=== PATIENT | female | born 1970 | race Caucasian/White ===

== ENCOUNTER 2016-10-11 12:19 | Inpatient (IN) | payer OTHER ==
[2016-10-11 12:39] VITALS: BMI 26.4
[2016-10-11] MEDS ORDERED: ONDANSETRON 4 MG/2 ML VIAL IVPUSH ONE ×2 (12:58→16:54)
[2016-10-11] MEDS ORDERED: SODIUM CHLORIDE 1,000 ML IV STA (12:58)
[2016-10-11] MEDS ORDERED: KETOROLAC TROMETHAMINE 30 MG/1 ML VIAL IVPUSH STA (13:08)
[2016-10-11] MEDS ORDERED: ONDANSETRON 4 MG/2 ML VIAL ONE ×2 (13:08→16:50)
[2016-10-11 13:20] LABS: URINE APPEARANCE CLEAR; URINE BILIRUBIN NEGATIVE (NEGATIVE); URINE BLOOD NEGATIVE (NEGATIVE); URINE COLOR STRAW; URINE GLUCOSE (UA) NEGATIVE (NEGATIVE); URINE KETONE NEGATIVE (NEGATIVE); URINE LEUK ESTERASE NEGATIVE (NEGATIVE); URINE NITRITE NEGATIVE (NEGATIVE); URINE PROTEIN NEGATIVE (NEGATIVE); URINE UROBILINOGEN NEGATIVE E.U./dl (0.2-1.0)
--- NOTE | 2016-10-11 13:25 | PDOC ---
History of Present Illness - General Chief Complaint: Pain, Acute Stated Complaint: HEADACHE, KIDNEY PAIN,HX OF CROHNS Time Seen by Provider: 10/11/16 12:45 History Source: Patient Exam Limitations: No Limitations - History of Present Illness Travel History: No Initial Comments: 10/11/16 13:17 46-year-old female with history of Crohn's followed by Dr. Woods and presents with right lower quadrant right flank pain radiating to her right periumbilical region which she describes a cramping pain for the past 2-3 days worsening in severity now having episodes of diarrhea accompanied with nausea and vomiting. Patient denies fever, chills, abdominal distention, change in urine pattern, recent travel or recent illness. Timing/Duration: reports: getting worse Quality: reports: moderate, cramping Abdominal Pain Onset Location: reports: RLQ, flank Pain Radiation: reports: RUQ, periumbilical Activities at Onset: reports: none Aggravating Factors: improves with: None Alleviating Factors: improves with: None Past History - Past Medical History Allergies/Adverse Reactions: Allergies Allergy/AdvReac Type Severity Reaction Status Date / Time metronidazole [From Flagyl] Allergy Verified 10/11/16 12:36 Home Medications: Ambulatory Orders Adalimumab [Humira] 40 mg SQ FR 10/11/16 GI Disorders: Yes (Crohn's) - Psycho/Social/Smoking Cessation Hx Suicidal Ideation: No Smoking History: Former smoker Have you smoked in the past 12 months: No Information on smoking cessation initiated: No Abd/GI Specific PMHX - Complaint Specific PMHX Other History: crohn's Review of Systems - Review of Systems Able to Perform ROS?: Yes Constitutional: No: Symptoms Reported HEENTM: No: Symptoms Reported Respiratory: No: Symptoms reported Cardiac (ROS): No: Symptoms Reported ABD/GI: Yes: Diarrhea, Nausea, Vomiting, Abdominal cramping : No: Symptoms Reported Musculoskeletal: No: Symptoms Reported Integumentary: No: Symptoms Reported Neurological: No: Symptoms reported *Physical Exam - Vital Signs Last Vital Signs Temp Pulse Resp BP Pulse Ox 98 F 80 19 127/85 98 10/11/16 12:36 10/11/16 12:36 10/11/16 12:36 10/11/16 12:36 10/11/16 12:36 - Physical Exam General Appearance: Yes: Nourished, Appropriately Dressed. No: Apparent Distress HEENT: negative: Pale Conjunctivae Respiratory/Chest: positive: Lungs Clear, Normal Breath Sounds. negative: Respiratory Distress, Accessory Muscle Use Cardiovascular: positive: Regular Rhythm, Regular Rate. negative: Murmur Gastrointestinal/Abdominal: positive: Normal Bowel Sounds, Soft, Tenderness ( right lower quadrant right periumbilical right upper quadrant.). negative: Distended, Guarding, Rebound, Hernia, Mass Musculoskeletal: positive: CVA Tenderness (R) (mild) Extremity: positive: Normal Capillary Refill. negative: Pedal Edema Integumentary: positive: Normal Color, Warm, Moist ED Treatment Course - LABORATORY CBC & Chemistry Diagram: 10/13/16 06:00 10/12/16 06:29 Medical Decision Making - Medical Decision Making 10/11/16 13:27 Patient with history of Crohn's presents with right upper quadrant right lower quadrant right flank pain for the past 3 days worsening severity patient history of Crohn's with her last, colonoscopy performed in [address] Woods patient states has been taking U Marro with good effect over the past 6 years. Patient today concerning for urinary tract infection versus cholecystitis versus Crohn's versus appendicitis. Patient ordered for labs urine pain control antiemetics, IV fluids, and CT 10/11/16 17:30 CT shows mild concentric wall thickening involving the colo-ileal anastomosis which may be on the basis of residual or recurrent inflammation. There is no pericolonic or perienteric edema visualized. Surgical anastomosis are seen within the mid abdominal small bowel movement ascending colon. There is no evidence of acute appendicitis or diverticulitis. There is evidence of a 3 cm right ovarian cyst. Call placed to Dr. Woods discuss today's visit Laboratory Tests 10/11/16 10/11/16 10/11/16 13:10 13:20 13:20 WBC 7.0 Hgb 13.5 Hct 41.6 Neutrophils % 43.6 Sodium 141 Potassium 3.7 Chloride 106 Carbon Dioxide 25 Anion Gap 10 BUN 6 L Creatinine 0.6 Random Glucose 91 Lactic Acid Calcium 8.5 Magnesium 1.9 Total Bilirubin 0.5 D AST 14 L D ALT 28 Alkaline Phosphatase 69 Lipase 190 Urine Ketones Negative Urine Nitrite Negative Urine HCG, Qual Negative 10/11/16 13:20 WBC Hgb Hct Neutrophils % Sodium Potassium Chloride Carbon Dioxide Anion Gap BUN Creatinine Random Glucose Lactic Acid 1.664 Calcium Magnesium Total Bilirubin AST ALT Alkaline Phosphatase Lipase Urine Ketones Urine Nitrite Urine HCG, Qual 10/11/16 18:[address] Woods and feels patient has failed outpatient therapy with Humira and is concerned with this acute exacerbation. He is recommending stool cultures keep patient nothing by mouth except ice chips, give Cipro 400 mg every 12, add a CRP, ESR, and give 3 bags of dextrose normal saline at 150 an hour. He is also recommending Solu-Medrol 60 mg every daily. Call also placed to Dr. Bassett for admission. *DC/Admit/Observation/Transfer Diagnosis at time of Disposition: Nausea vomiting and diarrhea Exacerbation of Crohn's disease Qualifiers: Digestive disease complication type: unspecified complication Qualified Code(s) : K50.919 - Crohn's disease, unspecified, with unspecified complications - Discharge Dispostion Admit: Yes
[2016-10-11] MEDS ORDERED: KETOROLAC TROMETHAMINE 30 MG/1 ML VIAL ONE (13:33)
[2016-10-11 13:35] LABS: BASOPHIL 0.6 % (0-2.0); EOSINOPHIL 1.4 % (0-4.5); MCH 26.4 pg (25.7-33.7); MCHC 32.3 g/dl (32.0-36.0); MEAN CELL VOLUME 81.8 fl (80-96); NEUTROPHILS 43.6 % (42.8-82.8); PLATELET COUNT 208 K/MM3 (134-434); RDW 14.5 % (11.6-15.6)
[2016-10-11 14:02] LABS: ALBUMIN 3.7 g/dl (3.4-5.0); ANION GAP 10 (8-16); BILIRUBIN,TOTAL 0.5 mg/dL (0.2-1.0); CALCIUM 8.5 mg/dL (8.5-10.1); CO2 25 mmol/L (21-32); CREATININE 0.6 mg/dL (0.55-1.02); GLUCOSE,RANDOM 91 mg/dL (74-106); MAGNESIUM 1.9 mg/dL (1.8-2.4); SGOT/AST 14 U/L (15-37); SGPT/ALT 28 U/L (12-78); TOT PROT 7.8 g/dl (6.4-8.2)
[2016-10-11 14:03] LABS: ALK PHOS 69 U/L (45-117)
[2016-10-11] MEDS ORDERED: morphine CARPU-JECT 2 MG/1 ML DISP.SYRIN IVPUSH ONE ×2 (14:05→17:44)
[2016-10-11] MEDS ORDERED: morphine CARPU-JECT 4 MG/1 ML DISP.SYRIN ONE ×2 (14:07→17:45)
[2016-10-11] MEDS ORDERED: CEFTRIAXONE 1 GM in DEXTROSE 5%-WATER - 50 ML IVPB ONE (18:18)
[2016-10-11] MEDS ORDERED: methylPREDNISolone NA SUCC 125 MG/2 ML VIAL IVPB ONE (18:19)
[2016-10-11] MEDS ORDERED: CIPROFLOXACIN 400 MG/D5W 200 ML IVPB ONE (18:21)
[2016-10-11] MEDS ORDERED: DEXTROSE 5%-NORMAL SALINE 1,000 ML IV SCH ×2 (18:30)
[2016-10-11] MEDS ORDERED: methylPREDNISolone NA SUCC 40 MG/1 ML VIAL ONE (18:33)
[2016-10-11] MEDS: DEXTROSE 5%-NORMAL SALINE 1,000 ML IV SCH (18:46)
[2016-10-11] MEDS ORDERED: PANTOPRAZOLE SODIUM 40 MG in SODIUM CHLORIDE 100 ML IVPB SCH (22:00)
[2016-10-11] MEDS: PANTOPRAZOLE SODIUM 40 MG/100 ML PRE-DOCKED IVPB SCH (23:30)
[2016-10-12] MEDS ORDERED: HYDROmorphone HCL CARPU-JECT 1 MG/1 ML DISP.SYRIN ONE (01:01)
[2016-10-12] MEDS: HYDROmorphone HCL CARPU-JECT 2 MG/1 ML DISP.SYRIN IVPB PRN ×2 (01:07→20:44)
[2016-10-12 07:06] LABS: BASOPHIL 0.4 % (0-2.0); MCHC 32.9 g/dl (32.0-36.0); MEAN CELL VOLUME 82.2 fl (80-96); NEUTROPHILS 59.2 % (42.8-82.8); PLATELET COUNT 189 K/MM3 (134-434); RDW 14.6 % (11.6-15.6); WHITE BLOOD COUNT 6.3 K/mm3 (4.0-10.0)
[2016-10-12 07:33] LABS: ALBUMIN 3.1 g/dl (3.4-5.0); ALK PHOS 59 U/L (45-117); ANION GAP 8 (8-16); BILIRUBIN,TOTAL 0.3 mg/dL (0.2-1.0); CALCIUM 7.9 mg/dL (8.5-10.1); CO2 23 mmol/L (21-32); CREATININE 0.5 mg/dL (0.55-1.02); GLUCOSE,RANDOM 136 mg/dL (74-106); SGOT/AST 7 U/L (15-37); SGPT/ALT 22 U/L (12-78); TOT PROT 6.5 g/dl (6.4-8.2)
[2016-10-12] MEDS ORDERED: methylPREDNISolone NA SUCC 125 MG/2 ML VIAL ONE (10:02)
[2016-10-12] MEDS ORDERED: PANTOPRAZOLE SODIUM 100 ML IVPB ONE (10:02)
[2016-10-12] MEDS: PANTOPRAZOLE SODIUM 40 MG/100 ML PRE-DOCKED IVPB SCH (10:05)
[2016-10-12] MEDS: methylPREDNISolone NA SUCC 125 MG/2 ML VIAL IVPB SCH (10:05)
[2016-10-12] MEDS: LEVOFLOXACIN 500 MG IVPB 100 ML IVPB SCH (13:24)
--- NOTE | 2016-10-12 18:28 | CON.GI ---
Consult Consult Specialty:: gastroenterology Reason for Consultation:: Crohns disease - History of Present Illness History of Present Illness: 46 y/o female with PMH of Crohns disease,s/p small bowel surgery, on Humara weekly was doing well until yesterdeay when developed diarrhea,abdominal bloating and abdominal pian,. Diarrhea is non-bloody,4-5 times small in amount, no recent travel history, no recent anitiobtic use, no recent URI or exposed to anybody with a flu. CT ileocolonic anastomosis is swollen - History Source History Provided By: Patient - Past Medical History HOTHOUSE WORKER: Yes: Migraine Cardio/Vascular: No: Aneurysm Pulmonary: No: Bronchitis Gastrointestinal: No: Cancer Hepatobiliary: No: Cholecystitis - Smoking History Smoking history: Former smoker Have you smoked in the past 12 months: No Home Medications - Allergies Allergies/Adverse Reactions: Allergies Allergy/AdvReac Type Severity Reaction Status Date / Time metronidazole [From Flagyl] Allergy Verified 10/11/16 12:36 - Home Medications Home Medications: Ambulatory Orders Adalimumab [Humira] 40 mg SQ FR 10/11/16 Family Disease History - Family Disease History Family History: Unable to Obtain Physical Exam-GI Vital Signs: Vital Signs Temperature 98.5 F 10/12/16 15:17 Pulse Rate 61 10/12/16 15:17 Respiratory Rate 20 10/12/16 15:17 Blood Pressure 130/75 10/12/16 15:17 O2 Sat by Pulse Oximetry (%) 98 10/12/16 13:19 Constitutional: Yes: Well Nourished Eyes: Yes: Conjunctiva Clear HENT: Yes: Atraumatic Neck: Yes: Supple Cardiovascular: Yes: Regular Rate and Rhythm Respiratory: Yes: CTA Bilaterally ...Palpate: Yes: Soft, Tenderness (--rlq). No: Firm/Rigid, Guarding, Hepatomegaly, Mass, Pulsatile Mass, Splenomegaly Labs: CBC, BMP 10/12/16 06:29 10/12/16 06:29 Problem List - Problems (1) Exacerbation of Crohn's disease Assessment/Plan: R> IV hydration IV solumedrol IV Levaquin clear liquids Code(s): K50.90 - CROHN'S DISEASE, UNSPECIFIED, WITHOUT COMPLICATIONS Qualifiers: Digestive disease complication type: unspecified complication Qualified Code(s): K50.919 - Crohn's disease, unspecified, with unspecified complications
[2016-10-12] MEDS: DEXTROSE 5%-NORMAL SALINE 1,000 ML IV SCH (20:44)
--- NOTE | 2016-10-12 23:17 | HP ---
Admitting History and Physical - Admission Chief Complaint: headaches associated with nausea and vomiting History of Present Illness: 46 yo female with PMH of Chron's disease controlled for approximately 4 years with weekly injectable Humira presented to ER for 4 days complaints of right hemicrania. Associated symptoms were nausea, vomiting and diarrhea. The patient has history of migraine headaches and presented to ER for pain management. At the time of the ER evaluation she was also complaining of right lower back pain and right lower quadrant pain. A ct scan of the abdomen was performed and it showed signs of active colitis. She denies any blood in stool, the color of the stools was brown with mucosities. Her vomitus was billious and occurred 4 times. 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 Cardiovascular: No: Aneurysm Pulmonary: No: Bronchitis Gastrointestinal: No: Cancer Hepatobiliary: No: Cholecystitis - Smoking History Smoking history: Former smoker Have you smoked in the past 12 months: No Home Medications - Allergies Allergies/Adverse Reactions: Allergies Allergy/AdvReac Type Severity Reaction Status Date / Time metronidazole [From Flagyl] Allergy Verified 10/11/16 12:36 - Home Medications Home Medications: Ambulatory Orders Adalimumab [Humira] 40 mg SQ FR 10/11/16 Review of Systems - Review of Systems Constitutional: reports: Loss of Appetite, Weakness Eyes: reports: No Symptoms HENT: reports: Other (right hemicrania) Neck: reports: No Symptoms Cardiovascular: reports: No Symptoms Respiratory: reports: No Symptoms Gastrointestinal: reports: Diarrhea, Nausea, Vomiting Breasts: reports: No Symptoms Reported Musculoskeletal: reports: No Symptoms (lower back pain involving the sacroileal area), Back Pain Integumentary: reports: No Symptoms Hematology/Lymphatic: reports: No Symptoms Psychiatric: reports: No Symptoms Physical Examination Vital Signs: Vital Signs Temperature 98.2 F 10/12/16 18:44 Pulse Rate 67 10/12/16 18:44 Respiratory Rate 20 10/12/16 18:44 Blood Pressure 121/67 10/12/16 18:44 O2 Sat by Pulse Oximetry (%) 98 10/12/16 13:19 Constitutional: Yes: No Distress, Calm Eyes: Yes: Conjunctiva Clear, EOM Intact HENT: Yes: Atraumatic, Normocephalic Neck: Yes: Supple, Trachea Midline Cardiovascular: Yes: Regular Rate and Rhythm, S1, S2 Respiratory: Yes: Regular Gastrointestinal: Yes: Normal Bowel Sounds, Soft, Abdomen, Obese, Tenderness ( in th eright upper and lower quadrant). No: Hepatomegaly, Melena, Rectal Bleeding, Splenomegaly ...Rectal Exam: Yes: Deferred Renal/: Yes: WNL Breast(s): Yes: WNL Extremities: No: Calf Tenderness Edema: No Peripheral Pulses WNL: Yes Integumentary: Yes: WNL Neurological: Yes: Alert, Oriented Psychiatric: Yes: Alert, Oriented Labs: CBC, BMP 10/12/16 06:29 10/12/16 06:29 Imaging - Results Cat Scan: Report Reviewed Problem List - Problems (1) Migraine Assessment/Plan: headache is better, and probably responded to the Solumedrol and Morphin/ dilaudid injections Code(s): G43.909 - MIGRAINE, UNSP, NOT INTRACTABLE, WITHOUT STATUS MIGRAINOSUS Qualifiers: Migraine type: other Status migrainosus presence: without status migrainosus Intractability: not intractable Qualified Code(s): G43.809 - Other migraine, not intractable, without status migrainosus (2) Exacerbation of Crohn's disease Assessment/Plan: inflammation markers are pending, strted Solumedron and iv antibiotic as per Dr Mima Patterson Gastroenterology follow up with dr. Woods maintain good hydration status with D5 1/2 NS vitamins levels NPO Code(s): K50.90 - CROHN'S DISEASE, UNSPECIFIED, WITHOUT COMPLICATIONS Qualifiers: Digestive disease complication type: unspecified complication Qualified Code(s): K50.919 - Crohn's disease, unspecified, with unspecified complications
[2016-10-13] MEDS: DEXTROSE 5%-NORMAL SALINE 1,000 ML IV SCH ×2 (06:36→19:05)
[2016-10-13 07:29] LABS: BASOPHIL 0.6 % (0-2.0); EOSINOPHIL 0.3 % (0-4.5); MCH 26.7 pg (25.7-33.7); MCHC 32.6 g/dl (32.0-36.0); MEAN CELL VOLUME 81.9 fl (80-96); MEAN PLT VOLUME 9.1 fl (7.5-11.1); NEUTROPHILS 41.9 % (42.8-82.8); PLATELET COUNT 178 K/MM3 (134-434); RDW 14.3 % (11.6-15.6); WHITE BLOOD COUNT 9.2 K/mm3 (4.0-10.0)
[2016-10-13 08:01] LABS: ALBUMIN 3.3 g/dl (3.4-5.0); ANION GAP 6 (8-16); BILIRUBIN,TOTAL 0.4 mg/dL (0.2-1.0); CALCIUM 8.2 mg/dL (8.5-10.1); CO2 27 mmol/L (21-32); CREATININE 0.7 mg/dL (0.55-1.02); GLUCOSE,RANDOM 97 mg/dL (74-106); SGOT/AST 21 U/L (15-37); SGPT/ALT 31 U/L (12-78)
[2016-10-13 08:02] LABS: ALK PHOS 57 U/L (45-117); TOT PROT 6.7 g/dl (6.4-8.2)
[2016-10-13] MEDS: methylPREDNISolone NA SUCC 125 MG/2 ML VIAL IVPB SCH (11:43)
[2016-10-13] MEDS: PANTOPRAZOLE SODIUM 40 MG/100 ML PRE-DOCKED IVPB SCH (11:43)
[2016-10-13] MEDS: LEVOFLOXACIN 500 MG IVPB 100 ML IVPB SCH (11:43)
[2016-10-13] MEDS: HYDROmorphone HCL CARPU-JECT 2 MG/1 ML DISP.SYRIN IVPB PRN ×2 (12:42→21:52)
--- NOTE | 2016-10-13 22:31 | PN ---
Progress Note, Physician Chief Complaint: 46 yo female admitted with headaches, nausea vomiting and abdominal pain, has history of Chron's History of Present Illness: Patient admitted with exacerbation of Chron's disease . She was found to have on CT scan inflammation of the ileo colic junction. She was started on IV Solumedrol and was given liquid diet. Today the patient was able to tolerate breakfast and lunch but vomited. She refused dinner due to nausea. Her abdominal pain is less - Current Medication List Current Medications: Active Medications Hydromorphone HCl (Dilaudid Injection -) 2 mg IVPB Q4H PRN PRN Reason: PAIN Last Admin: 10/13/16 21:52 Dose: 2 mg Levofloxacin (Levaquin 500 Mg Premixed Ivpb -) 100 mls @ 100 mls/hr IVPB DAILY MT Last Admin: 10/13/16 11:43 Dose: 100 mls/hr Methylprednisolone Sodium Succinate (Solu-Medrol -) 60 mg IVPB DAILY MT Pantoprazole Sodium (Protonix 40mg Ivpb (Pre-Docked)) 40 mg IVPB DAILY MT Last Admin: 10/13/16 11:43 Dose: 40 mg - Objective Vital Signs: Vital Signs Temperature 97.8 F 10/13/16 18:21 Pulse Rate 70 10/13/16 18:21 Respiratory Rate 20 10/13/16 18:21 Blood Pressure 137/70 10/13/16 18:21 O2 Sat by Pulse Oximetry (%) 98 10/13/16 09:00 Constitutional: Yes: No Distress, Calm Eyes: Yes: Conjunctiva Clear, EOM Intact HENT: Yes: Atraumatic, Normocephalic Neck: Yes: Supple, Trachea Midline Cardiovascular: Yes: Regular Rate and Rhythm, S1, S2 Respiratory: Yes: Regular, CTA Bilaterally Gastrointestinal: Yes: Normal Bowel Sounds, Soft, Abdomen, Obese, Tenderness ( right lower and right upper quadrant) Musculoskeletal: Yes: WNL Edema: No Peripheral Pulses WNL: Yes Neurological: Yes: Alert, Oriented Psychiatric: Yes: Alert, Oriented Labs: CBC, BMP 10/13/16 06:00 10/13/16 06:00 Problem List - Problems (1) Exacerbation of Crohn's disease Assessment/Plan: inflammation markers are not elevated, started Solumedrol and iv Levaquin there is no fever and no leukocytosis Gastroenterology follow up maintain good hydration with po fluids vitamins B 12, folate levels continue liquid diet Code(s): K50.90 - CROHN'S DISEASE, UNSPECIFIED, WITHOUT COMPLICATIONS Qualifiers: Digestive disease complication type: unspecified complication Qualified Code(s): K50.919 - Crohn's disease, unspecified, with unspecified complications (2) Migraine Assessment/Plan: headache is better Code(s): G43.909 - MIGRAINE, UNSP, NOT INTRACTABLE, WITHOUT STATUS MIGRAINOSUS Qualifiers: Migraine type: other Status migrainosus presence: without status migrainosus Intractability: not intractable Qualified Code(s): G43.809 - Other migraine, not intractable, without status migrainosus
[2016-10-14 07:45] LABS: BASOPHIL 0.6 % (0-2.0); EOSINOPHIL 0.1 % (0-4.5); MCH 26.6 pg (25.7-33.7); MCHC 32.5 g/dl (32.0-36.0); MEAN PLT VOLUME 9.6 fl (7.5-11.1); NEUTROPHILS 41.1 % (42.8-82.8); PLATELET COUNT 193 K/MM3 (134-434); RDW 14.3 % (11.6-15.6)
[2016-10-14 08:16] LABS: ALBUMIN 3.3 g/dl (3.4-5.0); ANION GAP 10 (8-16); BILIRUBIN,TOTAL 0.5 mg/dL (0.2-1.0); CALCIUM 8.4 mg/dL (8.5-10.1); CO2 28 mmol/L (21-32); CREATININE 0.7 mg/dL (0.55-1.02); GLUCOSE,RANDOM 84 mg/dL (74-106); SGOT/AST 65 U/L (15-37); SGPT/ALT 104 U/L (12-78); TOT PROT 6.9 g/dl (6.4-8.2)
--- NOTE | 2016-10-14 08:28 | PN ---
GI Progress Note Subjective: abdominal pain and diarrhea is resolved, tolerated clear liquids - Objective Vital Signs: Vital Signs Temperature 98.3 F 10/14/16 07:30 Pulse Rate 55 L 10/14/16 07:30 Respiratory Rate 16 10/14/16 07:30 Blood Pressure 140/74 10/14/16 07:30 O2 Sat by Pulse Oximetry (%) 97 10/13/16 22:00 Constitutional: Well Nourished Eyes: Yes: Conjunctiva Clear HENT: Yes: Atraumatic Neck: Yes: Supple Cardiovascular: Yes: Regular Rate and Rhythm Respiratory: Yes: CTA Bilaterally ...Palpate: Yes: Soft. No: Firm/Rigid, Guarding, Hepatomegaly, Mass, Pulsatile Mass, Splenomegaly, Tenderness Labs: CBC, BMP 10/14/16 06:25 Problem List - Problems (1) Exacerbation of Crohn's disease Assessment/Plan: r> made aware to follow-up will need to check levles of Humara and presence of antibodies as an outpatient (on Humara weekly) will need second opinion advance diet Prednisone 60mg daily upon discharge Code(s): K50.90 - CROHN'S DISEASE, UNSPECIFIED, WITHOUT COMPLICATIONS Qualifiers: Digestive disease complication type: unspecified complication Qualified Code(s): K50.919 - Crohn's disease, unspecified, with unspecified complications
[2016-10-14 08:52] LABS: ALK PHOS 64 U/L (45-117)
[2016-10-14] MEDS: PANTOPRAZOLE SODIUM 40 MG/100 ML PRE-DOCKED IVPB SCH (10:45)
[2016-10-14] MEDS: methylPREDNISolone NA SUCC 125 MG/2 ML VIAL IVPB SCH (10:45)
[2016-10-14] MEDS: LEVOFLOXACIN 500 MG IVPB 100 ML IVPB SCH (11:59)
[2016-10-14] MEDS: HYDROmorphone HCL CARPU-JECT 2 MG/1 ML DISP.SYRIN IVPB PRN ×2 (15:10→19:56)
--- NOTE | 2016-10-14 20:44 | PN ---
Progress Note, Physician Chief Complaint: patient seen, symptoms of bloating and diarrhea persist History of Present Illness: Patient admitted with exacerbation of Chron's disease . She was found to have on CT scan inflammation of the ileo colic junction. She was started on IV Solumedrol and was given liquid diet. When eating liquid diet the symptoms are less but they become worse if the patient has a different food consistency. - Current Medication List Current Medications: Active Medications Acetaminophen/Butalbital/Caffeine (Fioricet -) 1 tablet PO Q6H PRN PRN Reason: FEVER OR PAIN Hydromorphone HCl (Dilaudid Injection -) 2 mg IVPB Q4H PRN PRN Reason: PAIN Last Admin: 10/14/16 19:56 Dose: 2 mg Levofloxacin (Levaquin 500 Mg Premixed Ivpb -) 100 mls @ 100 mls/hr IVPB DAILY MT Last Admin: 10/14/16 11:59 Dose: 100 mls/hr Methylprednisolone Sodium Succinate (Solu-Medrol -) 60 mg IVPB DAILY [facility] Last Admin: 10/14/16 10:45 Dose: 60 mg Pantoprazole Sodium (Protonix -) 40 mg PO DAILY MT Propranolol HCl (Inderal -) 40 mg PO HS ONE Stop: 10/14/16 20:41 Zolpidem Tartrate (Ambien -) 10 mg PO HS PRN PRN Reason: INSOMNIA - Objective Vital Signs: Vital Signs Temperature 97.6 F 10/14/16 18:00 Pulse Rate 62 10/14/16 18:00 Respiratory Rate 16 10/14/16 18:00 Blood Pressure 115/75 10/14/16 18:00 O2 Sat by Pulse Oximetry (%) 98 10/14/16 09:00 Constitutional: Yes: No Distress, Calm Eyes: Yes: Conjunctiva Clear, EOM Intact HENT: Yes: Atraumatic, Normocephalic Neck: Yes: Supple, Trachea Midline Cardiovascular: Yes: Regular Rate and Rhythm, S1, S2 Respiratory: Yes: Regular, CTA Bilaterally Gastrointestinal: Yes: Normal Bowel Sounds, Soft Extremities: No: Calf Tenderness Edema: No Peripheral Pulses WNL: Yes Neurological: Yes: Alert, Oriented Psychiatric: Yes: Alert, Oriented Labs: CBC, BMP 10/14/16 06:25 10/14/16 06:25 Problem List - Problems (1) Exacerbation of Crohn's disease Assessment/Plan: liquid diet inflammation markers are not elevated, started Solumedrol and iv Levaquin there is no fever and no leukocytosis Gastroenterology follow up maintain good hydration with po fluids vitamins B 12, folate levels continue liquid diet Code(s): K50.90 - CROHN'S DISEASE, UNSPECIFIED, WITHOUT COMPLICATIONS Qualifiers: Digestive disease complication type: unspecified complication Qualified Code(s): K50.919 - Crohn's disease, unspecified, with unspecified complications (2) Migraine Assessment/Plan: headache is better but persisting Code(s): G43.909 - MIGRAINE, UNSP, NOT INTRACTABLE, WITHOUT STATUS MIGRAINOSUS Qualifiers: Migraine type: other Status migrainosus presence: without status migrainosus Intractability: not intractable Qualified Code(s): G43.809 - Other migraine, not intractable, without status migrainosus (3) Insomnia Assessment/Plan: Ambien at night 10 mg Code(s): G47.00 - INSOMNIA, UNSPECIFIED
[2016-10-14] MEDS: PROPRANOLOL HCL 40 MG TABLET PO SCH (22:06)
[2016-10-15] MEDS: ACETAMINOPHEN/CAFFEINE/BUTALBITAL 1 TAB PO PRN ×2 (01:39→19:42)
[2016-10-15 06:06] LABS: SERUM IRON 87 ug/dL (27-159); TOTAL IRON BINDING CAPACITY 295 ug/dL (250-450); UIBC 208 ug/dL (131-425)
[2016-10-15] MEDS: HYDROmorphone HCL CARPU-JECT 2 MG/1 ML DISP.SYRIN IVPB PRN (10:53)
[2016-10-15] MEDS: methylPREDNISolone NA SUCC 125 MG/2 ML VIAL IVPB SCH (10:54)
[2016-10-15] MEDS: PANTOPRAZOLE 40 MG TABLET (FP) PO SCH (10:54)
[2016-10-15] MEDS: LEVOFLOXACIN 500 MG IVPB 100 ML IVPB SCH (10:54)
--- NOTE | 2016-10-15 11:36 | PN ---
GI Progress Note Subjective: did not tolerate diet, abdominal pain, nausea and vomiting yesterday - Objective Vital Signs: Vital Signs Temperature 98 F 10/15/16 05:31 Pulse Rate 63 10/15/16 05:31 Respiratory Rate 16 10/15/16 05:31 Blood Pressure 128/75 10/15/16 05:31 O2 Sat by Pulse Oximetry (%) 98 10/14/16 21:00 Constitutional: Well Nourished Eyes: Yes: Conjunctiva Clear HENT: Yes: Atraumatic Neck: Yes: Supple Cardiovascular: Yes: Regular Rate and Rhythm Respiratory: Yes: Regular ...Palpate: Yes: Firm/Rigid, Guarding, Hepatomegaly, Mass, Soft, Splenomegaly, Tenderness Labs: CBC, BMP 10/14/16 06:25 10/14/16 06:25 Problem List - Problems (1) Exacerbation of Crohn's disease Assessment/Plan: R> FUA surgical consultation Code(s): K50.90 - CROHN'S DISEASE, UNSPECIFIED, WITHOUT COMPLICATIONS Qualifiers: Digestive disease complication type: unspecified complication Qualified Code(s): K50.919 - Crohn's disease, unspecified, with unspecified complications
--- NOTE | 2016-10-15 16:48 | PN ---
Progress Note, Physician Chief Complaint: Patient seen, complains of abdominal distention after eating and of abdominal pain. The abdominal pain resolves with fasting. Phu's diarrhea continues. She missed her weekly Humira injection. According to the patient her headaches responded to Fioricet. History of Present Illness: Patient admitted with exacerbation of Chron's disease . She was found to have on CT scan inflammation of the ileo colic junction. She was started on IV Solumedrol and was given liquid diet. Today the patient was able to tolerate breakfast and lunch but vomited. She refused dinner due to nausea. - Current Medication List Current Medications: Active Medications Acetaminophen/Butalbital/Caffeine (Fioricet -) 1 tablet PO Q6H PRN PRN Reason: FEVER OR PAIN Last Admin: 10/15/16 01:39 Dose: 1 tablet Hydromorphone HCl (Dilaudid Injection -) 2 mg IVPB Q4H PRN PRN Reason: PAIN Last Admin: 10/15/16 10:53 Dose: 2 mg Levofloxacin (Levaquin 500 Mg Premixed Ivpb -) 100 mls @ 100 mls/hr IVPB DAILY [facility] Last Admin: 10/15/16 10:54 Dose: 100 mls/hr Amino Acids (Clinimix -) 1,000 mls @ 84 mls/hr IV Q12H MT Methylprednisolone Sodium Succinate (Solu-Medrol -) 60 mg IVPB DAILY [facility] Last Admin: 10/15/16 10:54 Dose: 60 mg Pantoprazole Sodium (Protonix -) 40 mg PO DAILY [facility] Last Admin: 10/15/16 10:54 Dose: 40 mg Propranolol HCl (Inderal -) 40 mg PO HS [facility] [place] Last Admin: 10/14/16 22:06 Dose: 40 mg Zolpidem Tartrate (Ambien -) 10 mg PO HS PRN PRN Reason: INSOMNIA - Objective Vital Signs: Vital Signs Temperature 98 F 10/15/16 13:54 Pulse Rate 57 L 10/15/16 13:54 Respiratory Rate 20 10/15/16 13:54 Blood Pressure 143/92 10/15/16 13:54 O2 Sat by Pulse Oximetry (%) 98 10/15/16 09:00 Constitutional: Yes: No Distress, Calm Eyes: Yes: Conjunctiva Clear, EOM Intact HENT: Yes: Atraumatic, Normocephalic Neck: Yes: Supple, Thyromegaly Cardiovascular: Yes: Regular Rate and Rhythm, S1, S2 Respiratory: Yes: Regular, CTA Bilaterally Gastrointestinal: Yes: Normal Bowel Sounds, Soft, Vomiting. No: Tenderness, Rebound Labs: CBC, BMP 10/14/16 06:25 10/14/16 06:25 Problem List - Problems (1) Exacerbation of Crohn's disease Assessment/Plan: NPO Clinimix surgical consult pending with signs of peritoneal irritation inflammation markers are not elevated, started Solumedrol and iv Levaquin there is no fever and no leukocytosis Gastroenterology follow up maintain good hydration with po fluids vitamins B 12, folate levels continue liquid diet Code(s): K50.90 - CROHN'S DISEASE, UNSPECIFIED, WITHOUT COMPLICATIONS Qualifiers: Digestive disease complication type: unspecified complication Qualified Code(s): K50.919 - Crohn's disease, unspecified, with unspecified complications (2) Migraine Assessment/Plan: headache is better Code(s): G43.909 - MIGRAINE, UNSP, NOT INTRACTABLE, WITHOUT STATUS MIGRAINOSUS Qualifiers: Migraine type: other Status migrainosus presence: without status migrainosus Intractability: not intractable Qualified Code(s): G43.809 - Other migraine, not intractable, without status migrainosus
[2016-10-15] MEDS: AMINO ACIDS 4.25%/D5W 1,000 ML IV SCH (17:47)
[2016-10-15] MEDS: ZOLPIDEM TARTRATE 5 MG TABLET PO PRN (22:04)
[2016-10-15] MEDS: PROPRANOLOL HCL 40 MG TABLET PO SCH (22:05)
--- NOTE | 2016-10-15 22:15 | CONSULT ---
Consult Consult Specialty:: surgery Referred by:: Dr. Woods Reason for Consultation:: 46 y/o female with PMH of Crohns disease,s/p small bowel surgery, on Humara weekly was doing well until yesterdeay when developed diarrhea,abdominal bloating and abdominal pian,. Diarrhea is non-bloody,4-5 times small in amount, no recent travel history, no recent anitiobtic use, no recent URI or exposed to anybody with a flu. CT ileocolonic anastomosis is swollen. Since admission paient initially improved but develop nausea and vomiting today. - History of Present Illness Chief Complaint: Abdominal pain - History Source History Provided By: Patient Limitations to Obtaining History: No Limitations - Past Medical History STEAM FITTER: Yes: Migraine Cardio/Vascular: No: Aneurysm Pulmonary: No: Bronchitis Gastrointestinal: No: Cancer Hepatobiliary: No: Cholecystitis - Smoking History Smoking history: Former smoker Have you smoked in the past 12 months: No Home Medications - Allergies Allergies/Adverse Reactions: Allergies Allergy/AdvReac Type Severity Reaction Status Date / Time metronidazole [From Flagyl] Allergy Verified 10/11/16 12:36 - Home Medications Home Medications: Ambulatory Orders Adalimumab [Humira] 40 mg SQ FR 10/11/16 Physical Exam Vital Signs: Vital Signs Temperature 98.5 F 10/15/16 18:00 Pulse Rate 76 10/15/16 18:00 Respiratory Rate 20 10/15/16 18:00 Blood Pressure 126/77 10/15/16 18:00 O2 Sat by Pulse Oximetry (%) 98 10/15/16 09:00 Labs: CBC, BMP 10/14/16 06:25 10/14/16 06:25 Imaging - Results X-ray: Image Reviewed Cat Scan: Report Reviewed, Image Reviewed Problem List - Problems (1) Exacerbation of Crohn's disease Code(s): K50.90 - CROHN'S DISEASE, UNSPECIFIED, WITHOUT COMPLICATIONS Qualifiers: Digestive disease complication type: unspecified complication Qualified Code(s): K50.919 - Crohn's disease, unspecified, with unspecified complications Assessment/Plan Exaccerbation of crohn's. Agree with current management no need for surgical intervention but will follow closely with you in case of clinical deterioration
[2016-10-16] MEDS: AMINO ACIDS 4.25%/D5W 1,000 ML IV SCH ×2 (04:24→17:19)
[2016-10-16 07:16] LABS: MCH 26.9 pg (25.7-33.7); MCHC 33.3 g/dl (32.0-36.0); MEAN PLT VOLUME 9.1 fl (7.5-11.1); PLATELET COUNT 195 K/MM3 (134-434); WHITE BLOOD COUNT 12.3 K/mm3 (4.0-10.0)
[2016-10-16 07:40] LABS: CHOLESTEROL 166 mg/dL (50-200); LDL CHOLESTEROL (ONLY SJRH) 93 mg/dL (5-100)
[2016-10-16 07:44] LABS: ALBUMIN 3.2 g/dl (3.4-5.0); ANION GAP 8 (8-16); C-REACTIVE PROTEIN < 0.3 MG/DL (0.00-0.3); CALCIUM 8.3 mg/dL (8.5-10.1); CO2 29 mmol/L (21-32); CREATININE 0.6 mg/dL (0.55-1.02); GLUCOSE,RANDOM 94 mg/dL (74-106); SGOT/AST 21 U/L (15-37); SGPT/ALT 106 U/L (12-78)
[2016-10-16 07:46] LABS: ALK PHOS 60 U/L (45-117); BILIRUBIN,TOTAL 0.5 mg/dL (0.2-1.0); TOT PROT 6.6 g/dl (6.4-8.2)
[2016-10-16] MEDS: methylPREDNISolone NA SUCC 125 MG/2 ML VIAL IVPB SCH (10:13)
[2016-10-16] MEDS: PANTOPRAZOLE 40 MG TABLET (FP) PO SCH (10:16)
[2016-10-16] MEDS: LEVOFLOXACIN 500 MG IVPB 100 ML IVPB SCH (10:16)
--- NOTE | 2016-10-16 11:24 | PN ---
Progress Note (short form) - Note Progress Note: Surgery-Dr. Benavidez Patient seen and examined. States abdominal pain has improved as she has remained NPO. Had diarrhea, bloating, nausea and vomiting yesterday after eating cream of wheat, states these things have resolved as she has been NPO. Denies fever, chills. Last Vital Signs Temp Pulse Resp BP Pulse Ox 97.9 F 56 L 18 116/73 96 10/16/16 06:01 10/16/16 06:01 10/16/16 06:01 10/16/16 06:01 10/15/16 21:00 CBC, BMP 10/16/16 06:00 10/16/16 06:00 Exam: Gen: NAD, pleasant and cooperative Abd: Soft, nondistended, mild tenderness to palp right abd Problem List - Problems (1) Exacerbation of Crohn's disease Assessment/Plan: Continue current care per medicine Replete low potassium Surgery to continue to follow Code(s): K50.90 - CROHN'S DISEASE, UNSPECIFIED, WITHOUT COMPLICATIONS Qualifiers: Digestive disease complication type: unspecified complication Qualified Code(s): K50.919 - Crohn's disease, unspecified, with unspecified complications
[2016-10-16 12:00] LABS: PLATELET ESTIMATE ADEQUATE (NORMAL)
[2016-10-16] MEDS ORDERED: HUMIRA 40 MG SQ ONE (16:00)
--- NOTE | 2016-10-16 17:44 | PN ---
Progress Note, Physician Chief Complaint: Griffin patient was NPOo during the past 12 hours and had no complaints of pain or diarrhea. She was placed again of regular diet . She slept well and her migraine headache improved. - Current Medication List Current Medications: Active Medications Acetaminophen/Butalbital/Caffeine (Fioricet -) 1 tablet PO Q6H PRN PRN Reason: FEVER OR PAIN Last Admin: 10/15/16 19:42 Dose: 1 tablet Hydromorphone HCl (Dilaudid Injection -) 2 mg IVPB Q4H PRN PRN Reason: PAIN Last Admin: 10/15/16 10:53 Dose: 2 mg Levofloxacin (Levaquin 500 Mg Premixed Ivpb -) 100 mls @ 100 mls/hr IVPB DAILY [facility] Last Admin: 10/16/16 10:16 Dose: 100 mls/hr Amino Acids (Clinimix -) 1,000 mls @ 84 mls/hr IV Q12H MT Last Admin: 10/16/16 17:19 Dose: 84 mls/hr Methylprednisolone Sodium Succinate (Solu-Medrol -) 60 mg IVPB DAILY [facility] Last Admin: 10/16/16 10:13 Dose: 60 mg Pantoprazole Sodium (Protonix -) 40 mg PO DAILY [facility] Last Admin: 10/16/16 10:16 Dose: 40 mg Propranolol HCl (Inderal -) 40 mg PO HS MT Last Admin: 10/15/16 22:05 Dose: 40 mg Zolpidem Tartrate (Ambien -) 10 mg PO HS PRN PRN Reason: INSOMNIA Last Admin: 10/15/16 22:04 Dose: 10 mg - Objective Vital Signs: Vital Signs Temperature 98.4 F 10/16/16 16:46 Pulse Rate 75 10/16/16 16:46 Respiratory Rate 18 10/16/16 16:46 Blood Pressure 128/68 10/16/16 16:46 O2 Sat by Pulse Oximetry (%) 98 10/16/16 09:00 Constitutional: Yes: No Distress, Calm Eyes: Yes: Conjunctiva Clear, EOM Intact HENT: Yes: Atraumatic, Normocephalic Neck: Yes: Supple, Trachea Midline Cardiovascular: Yes: Regular Rate and Rhythm, S1, S2 Respiratory: Yes: Regular, CTA Bilaterally Gastrointestinal: Yes: Normal Bowel Sounds, Soft, Abdomen, Obese. No: Hepatomegaly, Splenomegaly Breast(s): Yes: WNL Musculoskeletal: Yes: WNL Extremities: Yes: WNL. No: Calf Tenderness Edema: No Peripheral Pulses WNL: No Neurological: Yes: Alert, Oriented Psychiatric: Yes: Alert, Oriented Labs: CBC, BMP 10/16/16 06:00 10/16/16 06:00 Problem List - Problems (1) Exacerbation of Crohn's disease Assessment/Plan: restarted regular diet stop Clinimix surgery not an indication Code(s): K50.90 - CROHN'S DISEASE, UNSPECIFIED, WITHOUT COMPLICATIONS Qualifiers: Digestive disease complication type: unspecified complication Qualified Code(s): K50.919 - Crohn's disease, unspecified, with unspecified complications (2) Migraine Assessment/Plan: headache is better Code(s): G43.909 - MIGRAINE, UNSP, NOT INTRACTABLE, WITHOUT STATUS MIGRAINOSUS Qualifiers: Migraine type: other Status migrainosus presence: without status migrainosus Intractability: not intractable Qualified Code(s): G43.809 - Other migraine, not intractable, without status migrainosus (3) Insomnia Assessment/Plan: ambien 10 mg po at hs Code(s): G47.00 - INSOMNIA, UNSPECIFIED (4) Hypokalemia Assessment/Plan: k dur 40 Glenda po once Code(s): E87.6 - HYPOKALEMIA
[2016-10-16] MEDS: ACETAMINOPHEN/CAFFEINE/BUTALBITAL 1 TAB PO PRN (19:13)
[2016-10-16] MEDS: ZOLPIDEM TARTRATE 5 MG TABLET PO PRN (21:20)
[2016-10-16] MEDS: PROPRANOLOL HCL 40 MG TABLET PO SCH (21:40)
[2016-10-16] MEDS ORDERED: POTASSIUM CHLORIDE TABS 20 MEQ TABLET.ER (FP) PO ONE (22:44)
[2016-10-17] MEDS: HYDROmorphone HCL CARPU-JECT 2 MG/1 ML DISP.SYRIN IVPB PRN ×2 (02:46→21:21)
[2016-10-17 07:48] LABS: BASOPHIL 0.2 % (0-2.0); EOSINOPHIL 0.3 % (0-4.5); MCH 26.7 pg (25.7-33.7); MCHC 32.4 g/dl (32.0-36.0); MEAN CELL VOLUME 82.5 fl (80-96); MEAN PLT VOLUME 9.6 fl (7.5-11.1); NEUTROPHILS 47.3 % (42.8-82.8); PLATELET COUNT 208 K/MM3 (134-434); RDW 14.1 % (11.6-15.6); WHITE BLOOD COUNT 12.2 K/mm3 (4.0-10.0)
[2016-10-17 08:12] LABS: ALBUMIN 3.4 g/dl (3.4-5.0); ANION GAP 8 (8-16); CALCIUM 8.6 mg/dL (8.5-10.1); CO2 29 mmol/L (21-32); GLUCOSE,RANDOM 82 mg/dL (74-106)
[2016-10-17 08:17] LABS: ALK PHOS 60 U/L (45-117); BILIRUBIN,TOTAL 0.5 mg/dL (0.2-1.0); CREATININE 0.7 mg/dL (0.55-1.02); SGOT/AST 14 U/L (15-37); SGPT/ALT 77 U/L (12-78)
[2016-10-17] MEDS: methylPREDNISolone NA SUCC 125 MG/2 ML VIAL IVPB SCH (11:10)
[2016-10-17] MEDS: PANTOPRAZOLE 40 MG TABLET (FP) PO SCH (11:11)
[2016-10-17] MEDS: LEVOFLOXACIN 500 MG IVPB 100 ML IVPB SCH (11:11)
[2016-10-17] MEDS: ACETAMINOPHEN/CAFFEINE/BUTALBITAL 1 TAB PO PRN (11:20)
[2016-10-17] MEDS ORDERED: ONDANSETRON 4 MG/2 ML VIAL IVPB PRN (13:23)
--- NOTE | 2016-10-17 13:27 | PN ---
Progress Note (short form) - Note Progress Note: Pt has been tolerating clears, this am her diet was advanced and she just had an episode of emesis. The patient states that she had a bowel movement yest and today with passing flatus. Last pm she had a little bit of abd pain which has worsened today. Vital Signs Period Temp Pulse Resp BP Sys/Hall Pulse Ox Last 24 Hr 97.4 F-98.4 F 60-82 18-20 108-146/66-85 97 PE: GEN: appears uncomfortable ABD: soft, non-distended, RLQ tenderness with palpation. No rebound. No diffuse pain. CBC, BMP 10/17/16 06:50 10/17/16 06:50 <Lucina Aguilar - Last Filed: 10/17/16 13:21> - Note Progress Note: Clinically stable Ct scan reviewed no collections, no evidence of obstruction or perforation A/p exaccerbation of crohn's continue medical management no need for surgical intervention at this time <Neil Benavidez - Last Filed: 10/18/16 01:17> Problem List - Problems (1) Exacerbation of Crohn's disease Assessment/Plan: Spoke with Dr. Carroll and recommended repeat CT scan with oral/iv contrast. Spoke with her primary care doctor and placed the pt npo/IV clinimax and ordered the repeat CT scan. Cont her current medical treatment for chron's, plus npo IV hydration. Surgery to follow the patient. Code(s): K50.90 - CROHN'S DISEASE, UNSPECIFIED, WITHOUT COMPLICATIONS Qualifiers: Digestive disease complication type: unspecified complication Qualified Code(s): K50.919 - Crohn's disease, unspecified, with unspecified complications <Lucina Aguilar - Last Filed: 10/17/16 13:21> - Problems (1) Exacerbation of Crohn's disease Code(s): K50.90 - CROHN'S DISEASE, UNSPECIFIED, WITHOUT COMPLICATIONS Qualifiers: Digestive disease complication type: unspecified complication Qualified Code(s): K50.919 - Crohn's disease, unspecified, with unspecified complications <Neil Benavidez - Last Filed: 10/18/16 01:17>
[2016-10-17] MEDS: AMINO ACIDS 4.25%/D5W 1,000 ML IV SCH (14:49)
--- NOTE | 2016-10-17 14:58 | PN ---
Progress Note, Physician Chief Complaint: the patient vomited this afternoon after receiving her lunch. He headache is recurring - Current Medication List Current Medications: Active Medications Acetaminophen/Butalbital/Caffeine (Fioricet -) 1 tablet PO Q6H PRN PRN Reason: FEVER OR PAIN Last Admin: 10/17/16 11:20 Dose: 1 tablet Hydromorphone HCl (Dilaudid Injection -) 2 mg IVPB Q4H PRN PRN Reason: PAIN Last Admin: 10/17/16 02:46 Dose: 2 mg Levofloxacin (Levaquin 500 Mg Premixed Ivpb -) 100 mls @ 100 mls/hr IVPB DAILY [facility] Last Admin: 10/17/16 11:11 Dose: 100 mls/hr Amino Acids (Clinimix -) 1,000 mls @ 84 mls/hr IV Q12H MT Last Admin: 10/17/16 14:49 Dose: 84 mls/hr Methylprednisolone Sodium Succinate (Solu-Medrol -) 60 mg IVPB DAILY [facility] Last Admin: 10/17/16 11:10 Dose: 60 mg Ondansetron HCl (Zofran Injection) 4 mg IVPB Q8H PRN PRN Reason: NAUSEA Pantoprazole Sodium (Protonix -) 40 mg PO DAILY [facility] Last Admin: 10/17/16 11:11 Dose: 40 mg Propranolol HCl (Inderal -) 40 mg PO HS [facility] Last Admin: 10/16/16 21:40 Dose: Not Given Zolpidem Tartrate (Ambien -) 10 mg PO HS PRN PRN Reason: INSOMNIA Last Admin: 10/16/16 21:20 Dose: 10 mg - Objective Vital Signs: Vital Signs Temperature 97.9 F 10/17/16 14:29 Pulse Rate 82 10/17/16 14:29 Respiratory Rate 18 10/17/16 14:29 Blood Pressure 130/71 10/17/16 14:29 O2 Sat by Pulse Oximetry (%) 97 10/16/16 21:00 Constitutional: Yes: No Distress, Calm Eyes: Yes: Conjunctiva Clear, EOM Intact HENT: Yes: Atraumatic, Normocephalic Neck: Yes: Supple, Trachea Midline Cardiovascular: Yes: Regular Rate and Rhythm, S1, S2 Respiratory: Yes: Regular, CTA Bilaterally Gastrointestinal: Yes: Normal Bowel Sounds, Abdomen, Obese, Tenderness (in th eright lower quadrant and epigastric area) ...Rectal Exam: Yes: Deferred Edema: No Labs: CBC, BMP 10/17/16 06:50 10/17/16 06:50 Problem List - Problems (1) Exacerbation of Crohn's disease Assessment/Plan: restarted regular diet stop Clinimix surgery not an indication Code(s): K50.90 - CROHN'S DISEASE, UNSPECIFIED, WITHOUT COMPLICATIONS Qualifiers: Digestive disease complication type: unspecified complication Qualified Code(s): K50.919 - Crohn's disease, unspecified, with unspecified complications (2) Migraine Assessment/Plan: headache is better Code(s): G43.909 - MIGRAINE, UNSP, NOT INTRACTABLE, WITHOUT STATUS MIGRAINOSUS Qualifiers: Migraine type: other Status migrainosus presence: without status migrainosus Intractability: not intractable Qualified Code(s): G43.809 - Other migraine, not intractable, without status migrainosus (3) Insomnia Assessment/Plan: ambien 10 mg po at hs Code(s): G47.00 - INSOMNIA, UNSPECIFIED (4) Hypokalemia Code(s): E87.6 - HYPOKALEMIA
[2016-10-17] MEDS: CYANOCOBALAMIN (VITAMIN B-12) 1000 MCG/1 ML VIAL IM SCH (17:24)
--- NOTE | 2016-10-17 20:08 | PN ---
GI Progress Note Subjective: Patient appears comfortable Episode of vomiting earlier. She has difficult to manage Crohns and has had 3 small bowel resections, the last being 10 years ago. Not clear how much small bowel has been removed. She has baseline soft/loose BMs 2-3 per day She was admitted with RLQ abdominal pain radiating to the eugene-umbilical area with N/V/diarrhea (non-bloody) She is on Humira 40 mg q week for the past 6 months. (40 q 2 weeks prior to that ) - Objective Vital Signs: Vital Signs Temperature 98.6 F 10/17/16 19:03 Pulse Rate 78 10/17/16 19:03 Respiratory Rate 16 10/17/16 19:03 Blood Pressure 127/66 10/17/16 19:03 O2 Sat by Pulse Oximetry (%) 97 10/17/16 09:00 Constitutional: Well Nourished, Calm, Mild Distress Eyes: Yes: Conjunctiva Clear HENT: Yes: Normocephalic Neck: Yes: Supple Cardiovascular: Yes: Regular Rate and Rhythm Respiratory: Yes: CTA Bilaterally Gastrointestinal Inspection: Yes: WNL ...Auscultate: Yes: Hyperactive Bowel Sounds ...Palpate: Yes: Soft, Tenderness (RLQ) ...Percussion: Yes: Tympanitic Extremities: Yes: WNL Neurological: No: Paresthesia Labs: CBC, BMP 10/17/16 06:50 10/17/16 06:50 Hepatic Panel Total Bilirubin 0.5 mg/dL (0.2-1.0) 10/17/16 06:50 AST 14 U/L (15-37) L D 10/17/16 06:50 ALT 77 U/L (12-78) D 10/17/16 06:50 Alkaline Phosphatase 60 U/L (45-117) 10/17/16 06:50 Albumin 3.4 g/dl (3.4-5.0) 10/17/16 06:50 Abnormal Lab Results 10/17/16 10/17/16 06:50 06:50 WBC 12.2 H Lymphocytes % 45.0 H AST 14 L D - ....Imaging Cat Scan: Report Reviewed (Initial scan with mild thickening at the ileocolonic junction. Repeat scan not read yet.) Assessment/Plan Patient with longstanding Crohns, now with possible exacerbation. Await results of second scan. She has B12 deficiency secondary to resection of bowel. She is taking sublingual B12- may need monthly injections if she remains deficient She may be developong intermittent partial obstructions secondary to high fiber foods impacting in the narrowed area of her small bowel Dietary advice given. Advised to follow up with Dr Woods as she may need meds revised again. Advance to lactose free clear liquid diet
[2016-10-17] MEDS ORDERED: PT OWN MED DRAWER 7, Y5N ONE (20:20)
[2016-10-17] MEDS: PROPRANOLOL HCL 40 MG TABLET PO SCH (21:23)
[2016-10-17] MEDS: ZOLPIDEM TARTRATE 5 MG TABLET PO PRN (22:56)
[2016-10-18] MEDS: AMINO ACIDS 4.25%/D5W 1,000 ML IV SCH ×3 (01:04→16:21)
--- NOTE | 2016-10-18 09:02 | PN ---
Progress Note (short form) - Note Progress Note: Feeling better today Exam benign Ct Reviewed continue current management Problem List - Problems (1) Exacerbation of Crohn's disease Code(s): K50.90 - CROHN'S DISEASE, UNSPECIFIED, WITHOUT COMPLICATIONS Qualifiers: Digestive disease complication type: unspecified complication Qualified Code(s): K50.919 - Crohn's disease, unspecified, with unspecified complications
[2016-10-18] MEDS: LEVOFLOXACIN 500 MG IVPB 100 ML IVPB SCH (10:04)
--- NOTE | 2016-10-18 10:05 | PN ---
Progress Note, Physician Chief Complaint: Patient seen after 36 hours of fasting doing significantly better. There is no abdominal pain, no headaches and no bloating. She feels hungry. Complaining of persisting right SI joint pain. - Current Medication List Current Medications: Active Medications Acetaminophen/Butalbital/Caffeine (Fioricet -) 1 tablet PO Q6H PRN PRN Reason: FEVER OR PAIN Last Admin: 10/17/16 11:20 Dose: 1 tablet Cyanocobalamin (Vitamin B12 Injection -) 1,000 mcg IM DAILY [facility] Last Admin: 10/17/16 17:24 Dose: 1,000 mcg Hydromorphone HCl (Dilaudid Injection -) 2 mg IVPB Q4H PRN PRN Reason: PAIN Last Admin: 10/17/16 21:21 Dose: 2 mg Levofloxacin (Levaquin 500 Mg Premixed Ivpb -) 100 mls @ 100 mls/hr IVPB DAILY [facility] Last Admin: 10/17/16 11:11 Dose: 100 mls/hr Amino Acids (Clinimix -) 1,000 mls @ 84 mls/hr IV Q12H MT Last Admin: 10/18/16 02:36 Dose: 84 mls/hr Methylprednisolone Sodium Succinate (Solu-Medrol -) 60 mg IVPB DAILY [facility] Last Admin: 10/17/16 11:10 Dose: 60 mg Ondansetron HCl (Zofran Injection) 4 mg IVPB Q8H PRN PRN Reason: NAUSEA Last Admin: 10/17/16 15:55 Dose: 4 mg Pantoprazole Sodium (Protonix -) 40 mg PO DAILY [facility] Last Admin: 10/17/16 11:11 Dose: 40 mg Propranolol HCl (Inderal -) 40 mg PO HS [facility] Last Admin: 10/17/16 21:23 Dose: Not Given Zolpidem Tartrate (Ambien -) 10 mg PO HS PRN PRN Reason: INSOMNIA Last Admin: 10/17/16 22:56 Dose: 10 mg - Objective Vital Signs: Vital Signs Temperature 98.0 F 10/18/16 09:27 Pulse Rate 73 10/18/16 09:27 Respiratory Rate 16 10/18/16 09:27 Blood Pressure 103/68 10/18/16 09:27 O2 Sat by Pulse Oximetry (%) 97 10/17/16 21:00 Constitutional: Yes: No Distress, Calm Eyes: Yes: Conjunctiva Clear, EOM Intact HENT: Yes: Atraumatic, Normocephalic Neck: Yes: Supple, Trachea Midline Cardiovascular: Yes: S1, S2 Respiratory: Yes: Regular, CTA Bilaterally Gastrointestinal: Yes: Normal Bowel Sounds, Soft Genitourinary: Yes: Other (pain to palpation of the right SI joint, lasegue is negative) Extremities: No: Calf Tenderness Edema: No Peripheral Pulses WNL: Yes Neurological: Yes: Alert, Oriented Psychiatric: Yes: Alert, Oriented Labs: CBC, BMP 10/17/16 06:50 10/17/16 06:50 - ....Imaging Cat Scan: Other (development of transverse and descendent colon colitis) Problem List - Problems (1) Exacerbation of Crohn's disease Assessment/Plan: order for soft diet as per gastroenterology on Clinimix surgery not an indication Code(s): K50.90 - CROHN'S DISEASE, UNSPECIFIED, WITHOUT COMPLICATIONS Qualifiers: Digestive disease complication type: unspecified complication Qualified Code(s): K50.919 - Crohn's disease, unspecified, with unspecified complications (2) Migraine Assessment/Plan: headache is better Code(s): G43.909 - MIGRAINE, UNSP, NOT INTRACTABLE, WITHOUT STATUS MIGRAINOSUS Qualifiers: Migraine type: other Status migrainosus presence: without status migrainosus Intractability: not intractable Qualified Code(s): G43.809 - Other migraine, not intractable, without status migrainosus (3) Insomnia Assessment/Plan: ambien 10 mg po at hs Code(s): G47.00 - INSOMNIA, UNSPECIFIED (4) Pernicious anemia Assessment/Plan: B 12 1000 mcg daily Code(s): D51.0 - VITAMIN B12 DEFIC ANEMIA DUE TO INTRINSIC FACTOR DEFICIENCY
[2016-10-18] MEDS: PANTOPRAZOLE 40 MG TABLET (FP) PO SCH (10:06)
[2016-10-18] MEDS: CYANOCOBALAMIN (VITAMIN B-12) 1000 MCG/1 ML VIAL IM SCH (10:06)
[2016-10-18] MEDS: methylPREDNISolone NA SUCC 125 MG/2 ML VIAL IVPB SCH (10:07)
[2016-10-18] MEDS: ACETAMINOPHEN/CAFFEINE/BUTALBITAL 1 TAB PO PRN (12:30)
--- NOTE | 2016-10-18 14:15 | PN ---
GI Progress Note Subjective: patient have baseline diarrhea 2-3 times a day , history of bowel resections three times in the past abdominal pain minmal, tolerated clear liquids - Objective Vital Signs: Vital Signs Temperature 98.0 F 10/18/16 09:27 Pulse Rate 73 10/18/16 09:27 Respiratory Rate 16 10/18/16 09:27 Blood Pressure 103/68 10/18/16 09:27 O2 Sat by Pulse Oximetry (%) 97 10/17/16 21:00 Constitutional: Well Nourished, Poor Hygeine HENT: Yes: Atraumatic Neck: Yes: Supple Cardiovascular: Yes: Regular Rate and Rhythm Respiratory: Yes: CTA Bilaterally ...Palpate: Yes: Soft, Tenderness (--right lower quadrant). No: Firm/Rigid, Guarding, Hepatomegaly, Mass, Splenomegaly Labs: CBC, BMP 10/17/16 06:50 10/17/16 06:50 Problem List - Problems (1) Exacerbation of Crohn's disease Assessment/Plan: patient with new onset left sided colitis by catscan etiology unclear R> advance diet as tolerated continue Solumedrol l Code(s): K50.90 - CROHN'S DISEASE, UNSPECIFIED, WITHOUT COMPLICATIONS Qualifiers: Digestive disease complication type: unspecified complication Qualified Code(s): K50.919 - Crohn's disease, unspecified, with unspecified complications
[2016-10-18] MEDS: PROPRANOLOL HCL 40 MG TABLET PO SCH (21:40)
[2016-10-18] MEDS: ZOLPIDEM TARTRATE 5 MG TABLET PO PRN (21:40)
[2016-10-19] MEDS: AMINO ACIDS 4.25%/D5W 1,000 ML IV SCH ×2 (01:27→16:54)
[2016-10-19] MEDS: HYDROmorphone HCL CARPU-JECT 2 MG/1 ML DISP.SYRIN IVPB PRN ×2 (03:39→16:54)
[2016-10-19 06:54] LABS: MCHC 32.8 g/dl (32.0-36.0); MEAN CELL VOLUME 82.3 fl (80-96); PLATELET COUNT 201 K/MM3 (134-434); RDW 14.3 % (11.6-15.6); WHITE BLOOD COUNT 12.2 K/mm3 (4.0-10.0)
[2016-10-19 07:18] LABS: ALBUMIN 3.5 g/dl (3.4-5.0); ANION GAP 7 (8-16); CALCIUM 8.8 mg/dL (8.5-10.1); CO2 31 mmol/L (21-32); CREATININE 0.7 mg/dL (0.55-1.02); GLUCOSE,RANDOM 86 mg/dL (74-106); SGOT/AST 13 U/L (15-37); SGPT/ALT 55 U/L (12-78)
[2016-10-19 07:20] LABS: ALK PHOS 64 U/L (45-117); BILIRUBIN,TOTAL 0.5 mg/dL (0.2-1.0); TOT PROT 6.8 g/dl (6.4-8.2)
[2016-10-19] MEDS: ACETAMINOPHEN/CAFFEINE/BUTALBITAL 1 TAB PO PRN (10:02)
[2016-10-19] MEDS: PANTOPRAZOLE 40 MG TABLET (FP) PO SCH (10:02)
[2016-10-19] MEDS: methylPREDNISolone NA SUCC 125 MG/2 ML VIAL IVPB SCH (10:03)
[2016-10-19] MEDS: LEVOFLOXACIN 500 MG IVPB 100 ML IVPB SCH (10:03)
[2016-10-19] MEDS: CYANOCOBALAMIN (VITAMIN B-12) 1000 MCG/1 ML VIAL IM SCH (10:03)
[2016-10-19] MEDS ORDERED: POTASSIUM CHLORIDE TABS 20 MEQ TABLET.ER (FP) PO ONE (12:29)
--- NOTE | 2016-10-19 12:47 | PN ---
Progress Note, Physician Chief Complaint: Nausea, vomiting after eating liquid diet last evening and this am. Right lower back pain. - Current Medication List Current Medications: Active Medications Acetaminophen/Butalbital/Caffeine (Fioricet -) 1 tablet PO Q6H PRN PRN Reason: FEVER OR PAIN Last Admin: 10/19/16 10:02 Dose: 1 tablet Cyanocobalamin (Vitamin B12 Injection -) 1,000 mcg IM DAILY [facility] Last Admin: 10/19/16 10:03 Dose: 1,000 mcg Hydromorphone HCl (Dilaudid Injection -) 2 mg IVPB Q4H PRN PRN Reason: PAIN Last Admin: 10/19/16 03:39 Dose: 2 mg Amino Acids (Clinimix -) 1,000 mls @ 84 mls/hr IV Q12H [facility] Last Admin: 10/19/16 01:27 Dose: Not Given Methylprednisolone Sodium Succinate (Solu-Medrol -) 60 mg IVPB DAILY [facility] Last Admin: 10/19/16 10:03 Dose: 60 mg Ondansetron HCl (Zofran Injection) 4 mg IVPB Q8H PRN PRN Reason: NAUSEA Last Admin: 10/17/16 15:55 Dose: 4 mg Pantoprazole Sodium (Protonix -) 40 mg PO DAILY [facility] Last Admin: 10/19/16 10:02 Dose: 40 mg Propranolol HCl (Inderal -) 40 mg PO HS [facility] Last Admin: 10/18/16 21:40 Dose: 40 mg Zolpidem Tartrate (Ambien -) 10 mg PO HS PRN PRN Reason: INSOMNIA Last Admin: 10/18/16 21:40 Dose: 10 mg - Objective Vital Signs: Vital Signs Temperature 97.9 F 10/19/16 05:31 Pulse Rate 71 10/19/16 05:31 Respiratory Rate 18 10/19/16 05:31 Blood Pressure 111/72 10/19/16 05:31 O2 Sat by Pulse Oximetry (%) 97 10/18/16 21:00 Constitutional: Yes: No Distress, Calm Eyes: Yes: Conjunctiva Clear, EOM Intact HENT: Yes: Atraumatic, Normocephalic Neck: Yes: Supple, Trachea Midline Cardiovascular: Yes: Regular Rate and Rhythm, S1, S2 Respiratory: Yes: Regular, CTA Bilaterally Gastrointestinal: Yes: Normal Bowel Sounds, Soft, Abdomen, Obese, Hypoactive Bowel Sounds, Tenderness (in the left and right lower quadrants). No: Splenomegaly Musculoskeletal: Yes: WNL Extremities: Yes: WNL. No: Calf Tenderness Edema: No Peripheral Pulses WNL: Yes Neurological: Yes: Alert, Oriented Psychiatric: Yes: Alert, Oriented Labs: CBC, BMP 10/19/16 06:00 10/19/16 06:00 Problem List - Problems (1) Exacerbation of Crohn's disease Assessment/Plan: patinet does not tolearate liquid diet continue Clinimix may require meds change Code(s): K50.90 - CROHN'S DISEASE, UNSPECIFIED, WITHOUT COMPLICATIONS Qualifiers: Digestive disease complication type: unspecified complication Qualified Code(s): K50.919 - Crohn's disease, unspecified, with unspecified complications (2) Migraine Assessment/Plan: continue Fioricet Code(s): G43.909 - MIGRAINE, UNSP, NOT INTRACTABLE, WITHOUT STATUS MIGRAINOSUS Qualifiers: Migraine type: other Status migrainosus presence: without status migrainosus Intractability: not intractable Qualified Code(s): G43.809 - Other migraine, not intractable, without status migrainosus (3) Insomnia Assessment/Plan: ambien 10 mg po at hs Code(s): G47.00 - INSOMNIA, UNSPECIFIED (4) Pernicious anemia Assessment/Plan: B 12 1000 mcg daily Code(s): D51.0 - VITAMIN B12 DEFIC ANEMIA DUE TO INTRINSIC FACTOR DEFICIENCY (5) Hypokalemia Assessment/Plan: K dur 40 Joanna once repeat K in am Code(s): E87.6 - HYPOKALEMIA
--- NOTE | 2016-10-19 18:36 | PN ---
GI Progress Note Subjective: had nausea and vomitng after clear liquids today - Objective Vital Signs: Vital Signs Temperature 97.8 F 10/19/16 13:36 Pulse Rate 74 10/19/16 13:36 Respiratory Rate 18 10/19/16 13:36 Blood Pressure 108/63 10/19/16 13:36 O2 Sat by Pulse Oximetry (%) 97 10/18/16 21:00 Constitutional: Well Nourished Eyes: Yes: Conjunctiva Clear HENT: Yes: Atraumatic Neck: Yes: Supple Cardiovascular: Yes: Regular Rate and Rhythm Respiratory: Yes: CTA Bilaterally ...Palpate: No: Firm/Rigid, Guarding, Hepatomegaly, Mass, Pulsatile Mass, Splenomegaly, Tenderness Labs: CBC, BMP 10/19/16 06:00 10/19/16 06:00 Problem List - Problems (1) Exacerbation of Crohn's disease Assessment/Plan: associated with nausea and vomiting and migraine R> Protonix 40mg daily Reglan 5mg 30 min ac Code(s): K50.90 - CROHN'S DISEASE, UNSPECIFIED, WITHOUT COMPLICATIONS Qualifiers: Digestive disease complication type: unspecified complication Qualified Code(s): K50.919 - Crohn's disease, unspecified, with unspecified complications
[2016-10-19] MEDS: METOCLOPRAMIDE HCL 10 MG TABLET (FP) PO SCH (19:08)
[2016-10-19] MEDS: PROPRANOLOL HCL 40 MG TABLET PO SCH (21:03)
[2016-10-19] MEDS: ZOLPIDEM TARTRATE 5 MG TABLET PO PRN (22:25)
[2016-10-20] MEDS: AMINO ACIDS 4.25%/D5W 1,000 ML IV SCH ×3 (04:11→15:37)
[2016-10-20] MEDS: METOCLOPRAMIDE HCL 10 MG TABLET (FP) PO SCH ×3 (06:19→17:50)
[2016-10-20 07:00] LABS: BASOPHIL 0.2 % (0-2.0); EOSINOPHIL 0.2 % (0-4.5); MCH 26.8 pg (25.7-33.7); MCHC 32.8 g/dl (32.0-36.0); MEAN CELL VOLUME 81.5 fl (80-96); MEAN PLT VOLUME 9.6 fl (7.5-11.1); NEUTROPHILS 51.9 % (42.8-82.8); PLATELET COUNT 207 K/MM3 (134-434); RDW 14.6 % (11.6-15.6)
[2016-10-20 07:42] LABS: ALBUMIN 3.4 g/dl (3.4-5.0); ALK PHOS 61 U/L (45-117); ANION GAP 12 (8-16); BILIRUBIN,TOTAL 0.7 mg/dL (0.2-1.0); CALCIUM 8.8 mg/dL (8.5-10.1); CO2 25 mmol/L (21-32); CREATININE 0.5 mg/dL (0.55-1.02); GLUCOSE,RANDOM 95 mg/dL (74-106); SGOT/AST 10 U/L (15-37); SGPT/ALT 46 U/L (12-78); TOT PROT 6.9 g/dl (6.4-8.2)
[2016-10-20] MEDS: methylPREDNISolone NA SUCC 125 MG/2 ML VIAL IVPB SCH (09:44)
[2016-10-20] MEDS: PANTOPRAZOLE 40 MG TABLET (FP) PO SCH (09:44)
[2016-10-20] MEDS: CYANOCOBALAMIN (VITAMIN B-12) 1000 MCG/1 ML VIAL IM SCH (09:44)
--- NOTE | 2016-10-20 18:27 | PN ---
Progress Note, Physician Chief Complaint: 46 yo female admitted with migraine headaches, nausea vomiting and abdominal pain, has history of Chron's. She was NPO yesterday and her abdomnal pain, nausea and vomiting resolved. Sh e responds well to fasting. History of Present Illness: Patient admitted with exacerbation of Chron's disease . She was found to have on CT scan inflammation of the ileo colic junction. She was started on IV Solumedrol and was given liquid diet. Today the patient restarted liquid diet and tolerated it well. she denies any headaches and had a restful night. - Current Medication List Current Medications: Active Medications Acetaminophen/Butalbital/Caffeine (Fioricet -) 1 tablet PO Q6H PRN PRN Reason: FEVER OR PAIN Last Admin: 10/19/16 10:02 Dose: 1 tablet Cyanocobalamin (Vitamin B12 Injection -) 1,000 mcg IM DAILY [place] Last Admin: 10/20/16 09:44 Dose: 1,000 mcg Hydromorphone HCl (Dilaudid Injection -) 2 mg IVPB Q4H PRN PRN Reason: PAIN Last Admin: 10/19/16 16:54 Dose: 2 mg Amino Acids (Clinimix -) 1,000 mls @ 84 mls/hr IV Q12H MT Last Admin: 10/20/16 15:37 Dose: 84 mls/hr Methylprednisolone Sodium Succinate (Solu-Medrol -) 60 mg IVPB DAILY MT Last Admin: 10/20/16 09:44 Dose: 60 mg Metoclopramide HCl (Reglan -) 5 mg PO TIDAC MT Last Admin: 10/20/16 17:50 Dose: 5 mg Ondansetron HCl (Zofran Injection) 4 mg IVPB Q8H PRN PRN Reason: NAUSEA Last Admin: 10/17/16 15:55 Dose: 4 mg Pantoprazole Sodium (Protonix -) 40 mg PO DAILY MT Last Admin: 10/20/16 09:44 Dose: 40 mg Potassium Chloride (K-Dur -) 40 meq PO ONCE ONE Stop: 10/20/16 19:01 Propranolol HCl (Inderal -) 40 mg PO HS MT Last Admin: 10/19/16 21:03 Dose: 40 mg Zolpidem Tartrate (Ambien -) 10 mg PO HS PRN PRN Reason: INSOMNIA Last Admin: 10/19/16 22:25 Dose: 10 mg - Objective Vital Signs: Vital Signs Temperature 98.2 F 10/20/16 16:54 Pulse Rate 89 10/20/16 16:54 Respiratory Rate 18 10/20/16 16:54 Blood Pressure 106/62 10/20/16 16:54 O2 Sat by Pulse Oximetry (%) 98 10/20/16 09:00 Constitutional: Yes: No Distress, Calm Eyes: Yes: Conjunctiva Clear, EOM Intact HENT: Yes: Atraumatic, Normocephalic Neck: Yes: Supple, Trachea Midline Cardiovascular: Yes: Regular Rate and Rhythm, S1, S2 Respiratory: Yes: Regular, CTA Bilaterally Gastrointestinal: Yes: Normal Bowel Sounds, Soft, Other (minimal tenderness to plapation of the lefty lower quadrant) Breast(s): Yes: WNL Labs: CBC, BMP 10/20/16 06:00 10/20/16 06:00 Problem List - Problems (1) Exacerbation of Crohn's disease Assessment/Plan: inflammation markers are pending, strted Solumedron and iv antibiotic as per Dr Mima Patterson [facility] follow up with dr. Woods maintain good hydration status with D5 1/2 NS vitamins levels NPO Code(s): K50.90 - CROHN'S DISEASE, UNSPECIFIED, WITHOUT COMPLICATIONS Qualifiers: Digestive disease complication type: unspecified complication Qualified Code(s): K50.919 - Crohn's disease, unspecified, with unspecified complications (2) Migraine Assessment/Plan: headache is better, and probably responded to the Solumedrol and Morphin/ dilaudid injections Code(s): G43.909 - MIGRAINE, UNSP, NOT INTRACTABLE, WITHOUT STATUS MIGRAINOSUS Qualifiers: Migraine type: other Status migrainosus presence: without status migrainosus Intractability: not intractable Qualified Code(s): G43.809 - Other migraine, not intractable, without status migrainosus (3) Insomnia Assessment/Plan: Ambien at night 10 mg Code(s): G47.00 - INSOMNIA, UNSPECIFIED (4) Pernicious anemia Assessment/Plan: B 12 1000 mcg daily Code(s): D51.0 - VITAMIN B12 DEFIC ANEMIA DUE TO INTRINSIC FACTOR DEFICIENCY (5) Hypokalemia Assessment/Plan: K dur 40 Joanna once repeat K in am Code(s): E87.6 - HYPOKALEMIA
[2016-10-20] MEDS ORDERED: POTASSIUM CHLORIDE TABS 20 MEQ TABLET.ER (FP) PO ONE (19:00)
[2016-10-20] MEDS ORDERED: PT OWN MED DRAWER 7, Y5N ONE (21:10)
[2016-10-20] MEDS: PROPRANOLOL HCL 40 MG TABLET PO SCH (21:18)
[2016-10-20] MEDS: HYDROmorphone HCL CARPU-JECT 2 MG/1 ML DISP.SYRIN IVPB PRN (21:19)
[2016-10-20] MEDS: ZOLPIDEM TARTRATE 5 MG TABLET PO PRN (21:19)
--- NOTE | 2016-10-20 21:38 | PN ---
GI Progress Note Subjective: Comfortable and in no pain. Some nausea and vomiting earlier which patient associates with solumedrol infusions. - Objective Vital Signs: Vital Signs Temperature 98.2 F 10/20/16 16:54 Pulse Rate 89 10/20/16 16:54 Respiratory Rate 18 10/20/16 16:54 Blood Pressure 106/62 10/20/16 16:54 O2 Sat by Pulse Oximetry (%) 98 10/20/16 09:00 Constitutional: Well Nourished HENT: Yes: Normocephalic Cardiovascular: Yes: Regular Rate and Rhythm Respiratory: Yes: CTA Bilaterally Gastrointestinal Inspection: Yes: WNL ...Auscultate: Yes: Normoactive Bowel Sounds ...Palpate: Yes: Soft. No: Tenderness Labs: CBC, BMP 10/20/16 06:00 10/20/16 06:00 Assessment/Plan Crohns exacerbation Improving slowly on steroids. Full liquid diet tomorrow Continue current management for now
[2016-10-21] MEDS: AMINO ACIDS 4.25%/D5W 1,000 ML IV SCH (01:06)
[2016-10-21] MEDS: METOCLOPRAMIDE HCL 10 MG TABLET (FP) PO SCH ×3 (06:55→16:27)
[2016-10-21 07:23] LABS: BASOPHIL 0.2 % (0-2.0); EOSINOPHIL 0.1 % (0-4.5); MEAN CELL VOLUME 81.8 fl (80-96); MEAN PLT VOLUME 9.9 fl (7.5-11.1); NEUTROPHILS 58.5 % (42.8-82.8); PLATELET COUNT 233 K/MM3 (134-434); RDW 14.6 % (11.6-15.6); WHITE BLOOD COUNT 13.7 K/mm3 (4.0-10.0)
[2016-10-21 07:40] LABS: ALBUMIN 3.6 g/dl (3.4-5.0); ALK PHOS 71 U/L (45-117); ANION GAP 8 (8-16); BILIRUBIN,TOTAL 0.5 mg/dL (0.2-1.0); CALCIUM 8.2 mg/dL (8.5-10.1); CO2 27 mmol/L (21-32); CREATININE 0.6 mg/dL (0.55-1.02); GLUCOSE,RANDOM 87 mg/dL (74-106); MAGNESIUM 1.9 mg/dL (1.8-2.4); SGOT/AST 21 U/L (15-37); SGPT/ALT 69 U/L (12-78); TOT PROT 7.2 g/dl (6.4-8.2)
[2016-10-21] MEDS: PANTOPRAZOLE 40 MG TABLET (FP) PO SCH (10:28)
[2016-10-21] MEDS: methylPREDNISolone NA SUCC 125 MG/2 ML VIAL IVPB SCH (10:28)
[2016-10-21] MEDS: HYDROmorphone HCL CARPU-JECT 2 MG/1 ML DISP.SYRIN IVPB PRN (10:28)
[2016-10-21] MEDS: CYANOCOBALAMIN (VITAMIN B-12) 1000 MCG/1 ML VIAL IM SCH (11:15)
[2016-10-21] MEDS ORDERED: POTASSIUM CHLORIDE TABS 20 MEQ TABLET.ER (FP) PO ONE (11:45)
--- NOTE | 2016-10-21 11:45 | PN ---
Progress Note, Physician Chief Complaint: Patient has no more abdominal pain or vomiting, she is complaining of headaches this morning. Developed 2 diarheic stools after eating breakfast.There is no fever - Current Medication List Current Medications: Active Medications Acetaminophen/Butalbital/Caffeine (Fioricet -) 1 tablet PO Q6H PRN PRN Reason: FEVER OR PAIN Last Admin: 10/19/16 10:02 Dose: 1 tablet Cyanocobalamin (Vitamin B12 Injection -) 1,000 mcg IM DAILY [facility] Last Admin: 10/21/16 11:15 Dose: 1,000 mcg Hydromorphone HCl (Dilaudid Injection -) 2 mg IVPB Q4H PRN PRN Reason: PAIN Last Admin: 10/21/16 10:28 Dose: 2 mg Methylprednisolone Sodium Succinate (Solu-Medrol -) 60 mg IVPB DAILY [facility] Last Admin: 10/21/16 10:28 Dose: 60 mg Metoclopramide HCl (Reglan -) 5 mg PO TIDAC [facility] Last Admin: 10/21/16 10:30 Dose: 5 mg Ondansetron HCl (Zofran Injection) 4 mg IVPB Q8H PRN PRN Reason: NAUSEA Last Admin: 10/17/16 15:55 Dose: 4 mg Pantoprazole Sodium (Protonix -) 40 mg PO DAILY [facility] Last Admin: 10/21/16 10:28 Dose: 40 mg Potassium Chloride (K-Dur -) 40 meq PO ONCE ONE Stop: 10/21/16 11:40 Propranolol HCl (Inderal -) 40 mg PO HS [facility] Last Admin: 10/20/16 21:18 Dose: 40 mg Zolpidem Tartrate (Ambien -) 10 mg PO HS PRN PRN Reason: INSOMNIA Last Admin: 10/20/16 21:19 Dose: 10 mg - Objective Vital Signs: Vital Signs Temperature 98.7 F 10/21/16 08:45 Pulse Rate 70 10/21/16 08:45 Respiratory Rate 18 10/21/16 08:45 Blood Pressure 111/72 10/21/16 08:45 O2 Sat by Pulse Oximetry (%) 98 10/20/16 21:00 Constitutional: Yes: No Distress, Calm Eyes: Yes: Conjunctiva Clear, EOM Intact HENT: Yes: Atraumatic, Normocephalic Neck: Yes: Supple, Trachea Midline Cardiovascular: Yes: Regular Rate and Rhythm, S1, S2 Respiratory: Yes: Regular, CTA Bilaterally Gastrointestinal: Yes: Normal Bowel Sounds, Soft Musculoskeletal: Yes: WNL Extremities: Yes: WNL. No: Calf Tenderness Edema: No Peripheral Pulses WNL: Yes Neurological: Yes: Alert, Oriented, Other (headaches , right sided and in the occipital area) Psychiatric: Yes: Alert, Oriented Labs: CBC, BMP 10/21/16 06:00 10/21/16 06:00 Problem List - Problems (1) Exacerbation of Crohn's disease Assessment/Plan: improved with fasting full liquid diet Code(s): K50.90 - CROHN'S DISEASE, UNSPECIFIED, WITHOUT COMPLICATIONS Qualifiers: Digestive disease complication type: unspecified complication Qualified Code(s): K50.919 - Crohn's disease, unspecified, with unspecified complications (2) Migraine Assessment/Plan: Fioricet Code(s): G43.909 - MIGRAINE, UNSP, NOT INTRACTABLE, WITHOUT STATUS MIGRAINOSUS Qualifiers: Migraine type: other Status migrainosus presence: without status migrainosus Intractability: not intractable Qualified Code(s): G43.809 - Other migraine, not intractable, without status migrainosus (3) Insomnia Assessment/Plan: Ambien at night 10 mg Code(s): G47.00 - INSOMNIA, UNSPECIFIED (4) Pernicious anemia Assessment/Plan: B 12 1000 mcg daily Code(s): D51.0 - VITAMIN B12 DEFIC ANEMIA DUE TO INTRINSIC FACTOR DEFICIENCY (5) Hypokalemia Assessment/Plan: K dur 40 Joanna once repeat K in am Code(s): E87.6 - HYPOKALEMIA
--- NOTE | 2016-10-21 17:55 | PN ---
GI Progress Note Subjective: Vomited this AM. States she had a migraine. She states she frequently has N/V associated with her migraines. - Objective Vital Signs: Vital Signs Temperature 98.5 F 10/21/16 14:30 Pulse Rate 76 10/21/16 14:30 Respiratory Rate 18 10/21/16 14:30 Blood Pressure 108/85 10/21/16 14:30 O2 Sat by Pulse Oximetry (%) 98 10/20/16 21:00 Constitutional: Well Nourished, No Distress Eyes: Yes: WNL HENT: Yes: WNL Neck: Yes: WNL Cardiovascular: Yes: Regular Rate and Rhythm Respiratory: Yes: CTA Bilaterally Gastrointestinal Inspection: Yes: WNL ...Auscultate: Yes: Normoactive Bowel Sounds ...Palpate: Yes: Tenderness (RLQ) Labs: CBC, BMP 10/21/16 06:00 10/21/16 06:00 Assessment/Plan Crohns exacerbation Improving slowly on steroids. Would try full liquid diet again tomorrow N/V may have been related to migraine and not Crohns
[2016-10-21] MEDS ORDERED: PT OWN MED DRAWER 7, Y5N ONE (21:04)
[2016-10-21] MEDS: PROPRANOLOL HCL 40 MG TABLET PO SCH (21:57)
[2016-10-21] MEDS: ZOLPIDEM TARTRATE 5 MG TABLET PO PRN (21:57)
[2016-10-22] MEDS: HYDROmorphone HCL CARPU-JECT 2 MG/1 ML DISP.SYRIN IVPB PRN (04:59)
[2016-10-22] MEDS: METOCLOPRAMIDE HCL 10 MG TABLET (FP) PO SCH ×3 (06:11→16:30)
[2016-10-22 07:57] LABS: BASOPHIL 0.3 % (0-2.0); EOSINOPHIL 0.2 % (0-4.5); MCH 26.6 pg (25.7-33.7); MCHC 32.4 g/dl (32.0-36.0); MEAN CELL VOLUME 82.2 fl (80-96); MEAN PLT VOLUME 9.9 fl (7.5-11.1); NEUTROPHILS 55.1 % (42.8-82.8); PLATELET COUNT 212 K/MM3 (134-434); RDW 14.3 % (11.6-15.6); WHITE BLOOD COUNT 14.8 K/mm3 (4.0-10.0)
[2016-10-22] MEDS: CYANOCOBALAMIN (VITAMIN B-12) 1000 MCG/1 ML VIAL IM SCH (09:19)
[2016-10-22] MEDS: PANTOPRAZOLE 40 MG TABLET (FP) PO SCH (09:19)
[2016-10-22] MEDS: methylPREDNISolone NA SUCC 125 MG/2 ML VIAL IVPB SCH (09:19)
[2016-10-22] MEDS ORDERED: ACETAMINOPHEN/CAFFEINE/BUTALBITAL 1 TAB PO PRN (18:31)
--- NOTE | 2016-10-22 18:31 | PN ---
Progress Note, Physician Chief Complaint: Patient has no more abdominal pain or vomiting, was able to tolerate full liquid diet History of Present Illness: Patient admitted with exacerbation of Chron's disease . She was found to have on CT scan inflammation of the ileo colic junction. She was started on IV Solumedrol and was given liquid diet. Today the patient restarted liquid diet and tolerated it well. she denies any headaches and had a restful night. - Current Medication List Current Medications: Active Medications Acetaminophen/Butalbital/Caffeine (Fioricet -) 1 tablet PO Q6H PRN PRN Reason: FEVER OR PAIN Last Admin: 10/19/16 10:02 Dose: 1 tablet Cyanocobalamin (Vitamin B12 Injection -) 1,000 mcg IM DAILY MT Last Admin: 10/22/16 09:19 Dose: 1,000 mcg Hydromorphone HCl (Dilaudid Injection -) 2 mg IVPB Q4H PRN PRN Reason: PAIN Last Admin: 10/22/16 04:59 Dose: 2 mg Methylprednisolone Sodium Succinate (Solu-Medrol -) 60 mg IVPB DAILY MT Last Admin: 10/22/16 09:19 Dose: 60 mg Metoclopramide HCl (Reglan -) 5 mg PO TIDAC MT Last Admin: 10/22/16 16:30 Dose: 5 mg Ondansetron HCl (Zofran Injection) 4 mg IVPB Q8H PRN PRN Reason: NAUSEA Last Admin: 10/17/16 15:55 Dose: 4 mg Pantoprazole Sodium (Protonix -) 40 mg PO DAILY MT Last Admin: 10/22/16 09:19 Dose: 40 mg Propranolol HCl (Inderal -) 40 mg PO HS MT Last Admin: 10/21/16 21:57 Dose: 40 mg Zolpidem Tartrate (Ambien -) 10 mg PO HS PRN PRN Reason: INSOMNIA Last Admin: 10/21/16 21:57 Dose: 10 mg - Objective Vital Signs: Vital Signs Temperature 98.4 F 10/22/16 14:16 Pulse Rate 80 10/22/16 14:16 Respiratory Rate 20 10/22/16 14:16 Blood Pressure 100/68 10/22/16 09:10 O2 Sat by Pulse Oximetry (%) 99 10/22/16 09:00 Constitutional: Yes: No Distress, Calm Eyes: Yes: Conjunctiva Clear, EOM Intact HENT: Yes: Atraumatic, Normocephalic Neck: Yes: Supple, Trachea Midline Cardiovascular: Yes: Regular Rate and Rhythm, S1, S2 Respiratory: Yes: Regular, CTA Bilaterally Gastrointestinal: Yes: Normal Bowel Sounds, Soft. No: Tenderness, Rebound, Vomiting Extremities: Yes: WNL. No: Calf Tenderness Edema: No Neurological: Yes: Alert, Oriented Psychiatric: Yes: Alert, Oriented Labs: CBC, BMP 10/22/16 06:30 10/21/16 06:00 Problem List - Problems (1) Exacerbation of Crohn's disease Assessment/Plan: improved with fasting, advance to soft diet Code(s): K50.90 - CROHN'S DISEASE, UNSPECIFIED, WITHOUT COMPLICATIONS Qualifiers: Digestive disease complication type: unspecified complication Qualified Code(s): K50.919 - Crohn's disease, unspecified, with unspecified complications (2) Migraine Assessment/Plan: incresae to 2 tab Fioricet q 8 hrs Code(s): G43.909 - MIGRAINE, UNSP, NOT INTRACTABLE, WITHOUT STATUS MIGRAINOSUS Qualifiers: Migraine type: other Status migrainosus presence: without status migrainosus Intractability: not intractable Qualified Code(s): G43.809 - Other migraine, not intractable, without status migrainosus (3) Insomnia Assessment/Plan: Ambien at night 10 mg Code(s): G47.00 - INSOMNIA, UNSPECIFIED (4) Pernicious anemia Assessment/Plan: B 12 1000 mcg daily Code(s): D51.0 - VITAMIN B12 DEFIC ANEMIA DUE TO INTRINSIC FACTOR DEFICIENCY
[2016-10-22] MEDS: PROPRANOLOL HCL 40 MG TABLET PO SCH (21:28)
[2016-10-22] MEDS: ZOLPIDEM TARTRATE 5 MG TABLET PO PRN (21:28)
[2016-10-23] MEDS: METOCLOPRAMIDE HCL 10 MG TABLET (FP) PO SCH ×3 (06:12→18:22)
[2016-10-23] MEDS: methylPREDNISolone NA SUCC 125 MG/2 ML VIAL IVPB SCH (10:20)
[2016-10-23] MEDS: PANTOPRAZOLE 40 MG TABLET (FP) PO SCH (10:21)
[2016-10-23] MEDS: CYANOCOBALAMIN (VITAMIN B-12) 1000 MCG/1 ML VIAL IM SCH (10:21)
--- NOTE | 2016-10-23 12:35 | PN ---
GI Progress Note Subjective: Taking po-diet advanced and she is tolerating it. There has been no N/V today. - Objective Vital Signs: Vital Signs Temperature 98.2 F 10/23/16 10:00 Pulse Rate 72 10/23/16 10:00 Respiratory Rate 18 10/23/16 10:00 Blood Pressure 129/91 10/23/16 10:00 O2 Sat by Pulse Oximetry (%) 99 10/22/16 09:00 Constitutional: Well Nourished, No Distress HENT: Yes: Normocephalic Neck: Yes: Supple Cardiovascular: Yes: Regular Rate and Rhythm Respiratory: Yes: CTA Bilaterally Gastrointestinal Inspection: Yes: WNL ...Auscultate: Yes: Normoactive Bowel Sounds, Other (occasional high-pitched bowel sounds) ...Palpate: Yes: Guarding ((involuntary)), Tenderness (RLQ primarily) ...Percussion: Yes: Dullness Labs: CBC, BMP 10/22/16 06:30 10/21/16 06:00 Assessment/Plan Crohns exacerbation Improving slowly on steroids. Still RLQ tenderness Tolerating full liquid diet N/V may be related to migraine as well as bowel disease With inflammation at anastomosis, likely narrowing, as well as adhesions. Low residue diet recommended after d/c and close f/u with Dr Woods to possibly revise meds. Consider d/c tomorrow barring complications.
--- NOTE | 2016-10-23 14:19 | PN ---
Progress Note, Physician Chief Complaint: Patient has no more abdominal pain or vomiting, was able to tolerate full liquid diet patient seen - Current Medication List Current Medications: Active Medications Acetaminophen/Butalbital/Caffeine (Fioricet -) 2 tablet PO Q8H PRN PRN Reason: FEVER OR PAIN Last Admin: 10/23/16 14:13 Dose: 2 tablet Cyanocobalamin (Vitamin B12 Injection -) 1,000 mcg IM DAILY [facility] Last Admin: 10/23/16 10:21 Dose: 1,000 mcg Hydromorphone HCl (Dilaudid Injection -) 2 mg IVPB Q4H PRN PRN Reason: PAIN Last Admin: 10/22/16 04:59 Dose: 2 mg Methylprednisolone Sodium Succinate (Solu-Medrol -) 60 mg IVPB DAILY [facility] Last Admin: 10/23/16 10:20 Dose: 60 mg Metoclopramide HCl (Reglan -) 5 mg PO TIDAC [facility] Last Admin: 10/23/16 12:22 Dose: 5 mg Ondansetron HCl (Zofran Injection) 4 mg IVPB Q8H PRN PRN Reason: NAUSEA Last Admin: 10/17/16 15:55 Dose: 4 mg Pantoprazole Sodium (Protonix -) 40 mg PO DAILY [facility] Last Admin: 10/23/16 10:21 Dose: 40 mg Propranolol HCl (Inderal -) 40 mg PO HS [facility] Last Admin: 10/22/16 21:28 Dose: 40 mg Zolpidem Tartrate (Ambien -) 10 mg PO HS PRN PRN Reason: INSOMNIA Last Admin: 10/22/16 21:28 Dose: 10 mg - Objective Vital Signs: Vital Signs Temperature 99.5 F 10/23/16 14:15 Pulse Rate 83 10/23/16 14:15 Respiratory Rate 18 10/23/16 14:15 Blood Pressure 129/91 10/23/16 10:00 O2 Sat by Pulse Oximetry (%) 99 10/23/16 09:00 Constitutional: Yes: No Distress, Calm Eyes: Yes: Conjunctiva Clear, EOM Intact HENT: Yes: Atraumatic, Normocephalic Neck: Yes: Supple, Trachea Midline Cardiovascular: Yes: Regular Rate and Rhythm, S1, S2 Respiratory: Yes: Regular, CTA Bilaterally Gastrointestinal: Yes: Normal Bowel Sounds, Soft ...Rectal Exam: Yes: Deferred Genitourinary: Yes: WNL Breast(s): Yes: WNL Musculoskeletal: Yes: WNL Extremities: Yes: WNL. No: Calf Tenderness Peripheral Pulses WNL: Yes Labs: CBC, BMP 10/22/16 06:30 10/21/16 06:00 Problem List - Problems (1) Exacerbation of Crohn's disease Assessment/Plan: improved with fasting, advance to soft diet Code(s): K50.90 - CROHN'S DISEASE, UNSPECIFIED, WITHOUT COMPLICATIONS Qualifiers: Digestive disease complication type: unspecified complication Qualified Code(s): K50.919 - Crohn's disease, unspecified, with unspecified complications (2) Migraine Assessment/Plan: incresae to 2 tab Fioricet q 8 hrs Code(s): G43.909 - MIGRAINE, UNSP, NOT INTRACTABLE, WITHOUT STATUS MIGRAINOSUS Qualifiers: Migraine type: other Status migrainosus presence: without status migrainosus Intractability: not intractable Qualified Code(s): G43.809 - Other migraine, not intractable, without status migrainosus (3) Insomnia Assessment/Plan: Ambien at night 10 mg Code(s): G47.00 - INSOMNIA, UNSPECIFIED (4) Pernicious anemia Assessment/Plan: B 12 1000 mcg daily Code(s): D51.0 - VITAMIN B12 DEFIC ANEMIA DUE TO INTRINSIC FACTOR DEFICIENCY
[2016-10-23] MEDS ORDERED: PT OWN MED DRAWER 7, Y5N ONE (22:14)
[2016-10-23] MEDS: PROPRANOLOL HCL 40 MG TABLET PO SCH (22:50)
[2016-10-23] MEDS: ZOLPIDEM TARTRATE 5 MG TABLET PO PRN (22:56)
[2016-10-24] MEDS: METOCLOPRAMIDE HCL 10 MG TABLET (FP) PO SCH ×2 (06:08→10:42)
[2016-10-24 08:55] VITALS: BP 120/66; PULSE 82; TEMP 98.3
[2016-10-24] MEDS ORDERED: predniSONE 20 MG TABLET (UD) PO SCH (10:00)
[2016-10-24] MEDS: PANTOPRAZOLE 40 MG TABLET (FP) PO SCH (10:42)
[2016-10-24] MEDS: CYANOCOBALAMIN (VITAMIN B-12) 1000 MCG/1 ML VIAL IM SCH (10:46)
--- NOTE | 2016-10-24 11:44 | DS ---
Physical Examination Vital Signs: Vital Signs Temperature 98.3 F 10/24/16 08:54 Pulse Rate 82 10/24/16 08:54 Respiratory Rate 18 10/24/16 08:54 Blood Pressure 120/66 10/24/16 08:54 O2 Sat by Pulse Oximetry (%) 99 10/23/16 21:00 Constitutional: Yes: No Distress, Calm Eyes: Yes: Conjunctiva Clear, EOM Intact HENT: Yes: Atraumatic, Normocephalic Neck: Yes: Supple, Trachea Midline Cardiovascular: Yes: Regular Rate and Rhythm, S1, S2 Respiratory: Yes: Regular, CTA Bilaterally Gastrointestinal: Yes: Normal Bowel Sounds, Soft, Abdomen, Obese, Tenderness ( decreased tenderness in th eright lower quadrant). No: Hepatomegaly, Splenomegaly, Tenderness, Epigastrium, Vomiting Labs: CBC, BMP 10/22/16 06:30 10/21/16 06:00 Discharge Summary Reason For Visit: EXACERBATION OF CROHNS DISEASE Current Active Problems Exacerbation of Crohn's disease (Acute) Insomnia (Acute) Nausea vomiting and diarrhea (Acute) Pernicious anemia (Acute) Hospital Course: 46 yo female who wa admitted with nausea, vomiting, diarrhea and occipital headaches.She received traetmenst for muigraine headaches and Chron's exacerbation with prednisone. Her clinical course was delayed with numerous attempts to advance diet. She had a Ct scans of the abdomen which showed ileo colic anastomosis inflammation. During her stay there was no fever and she had no blood in stools.She has been tolerating soft diet over the past 48 hours. Condition: Good - Instructions Diet, Activity, Other Instructions: continue oral Prednisone taper doses, continue Humira, resume diet as tolerated. Taper schedule on steroids as directed by Gastroenetrology team Referrals: Ghazala Bassett MD [Primary Care Provider] - - Home Medications Comprehensive Discharge Medication List: Ambulatory Orders Adalimumab [Humira] 40 mg SQ FR 10/11/16
== END 2016-10-24 13:32 | disposition home or self-care (01) | DRG 179 ==
LOC: JER 12:19 → JERBED 18:28 → J7W 10-12 13:42
PROVIDERS: ADMIT Internal Medicine; ATTEND Internal Medicine
DX: K50.919 Crohn's disease, unspecified, with unspecified complications (principal); E87.6 Hypokalemia; D51.0 Vitamin B12 deficiency anemia due to intrinsic factor deficiency; R11.2 Nausea with vomiting, unspecified; Z87.891 Personal history of nicotine dependence; G43.809 Other migraine, not intractable, without status migrainosus; G47.00 Insomnia, unspecified
CPT/HCPCS: 36415; 74020-TC; 74176-TC; 74177-TC; 80053; 80061; 81003; 82272; 82607; 82746; 83540; 83550; 83605; 83690; 83721; 83735; 84466; 84703; 85025; 85651; 86140; 87086; 87324; 87449; 99285-25; Q9967

== ENCOUNTER 2017-11-13 17:38 | Emergency (ER) | payer OTHER ==
[2017-11-13 18:11] VITALS: BP 124/81; PULSE 89; TEMP 97.6; BMI 25.4
--- NOTE | 2017-11-13 18:15 | PDOC ---
Rapid Medical Evaluation Time Seen by Provider: 11/13/17 18:06 Medical Evaluation: Allergies Allergy/AdvReac Type Severity Reaction Status Date / Time metronidazole [From Flagyl] Allergy Verified 10/11/16 12:36 11/13/17 18:06 I have performed a brief in-person evaluation of the patient. The patient presents with chief complaint of: sent from pmd's office for flare up of crohn's disease. Reports abdominal pain right lower back pain and headache, diarrhea and vomiting. Denies blood in diarrhea, or urinary symptoms Pertinent physical exam findings are: NAD lungs clear bilateral abdomen soft, non tender + bowel grossly neurologically intact,. I have ordered the following: labs The patient will proceed to the ED for further evaluation.
[2017-11-13 19:21] LABS: ALBUMIN 3.9 g/dl (3.4-5.0); ANION GAP 10 (8-16); BLOOD UREA NITROGEN 9 mg/dL (7-18); CALCIUM 8.4 mg/dL (8.5-10.1); CHLORIDE 106 mmol/L (98-107); CO2 22 mmol/L (21-32); CREATININE 0.6 mg/dL (0.55-1.02); GLUCOSE,RANDOM 101 mg/dL (74-106); LIPASE 154 U/L (73-393); SGPT/ALT 28 U/L (12-78); SODIUM 138 mmol/L (136-145)
[2017-11-13 19:23] LABS: ALK PHOS 92 U/L (45-117); BILIRUBIN,TOTAL 0.6 mg/dL (0.2-1.0); TOT PROT 8.4 g/dl (6.4-8.2)
[2017-11-13 19:24] LABS: BASO % 0.8 % (0-2.0); EOS % 1.4 % (0-4.5); HEMATOCRIT 42.3 % (32.4-45.2); HEMOGLOBIN 14.2 GM/dL (10.7-15.3); LYMPH % 38.9 % (8-40); MCH 27.2 pg (25.7-33.7); MCHC 33.5 g/dl (32.0-36.0); MEAN CELL VOLUME 81.3 fl (80-96); MONO % 7.2 % (3.8-10.2); NEUT % 51.7 % (42.8-82.8); PLATELET COUNT 252 K/MM3 (134-434); POTASSIUM 4.2 mmol/L (3.5-5.1); RDW 14.2 % (11.6-15.6); SGOT/AST 24 U/L (15-37); WHITE BLOOD COUNT 8.1 K/mm3 (4.0-10.0)
[2017-11-13] MEDS ORDERED: methylPREDNISolone NA SUCC 125 MG/2 ML VIAL IVPB ONE (19:29)
[2017-11-13] MEDS ORDERED: methylPREDNISolone NA SUCC 125 MG/2 ML VIAL IVPB STA (19:30)
[2017-11-13] MEDS ORDERED: CEFTRIAXONE 1,000 MG in DEXTROSE 5%-WATER - 50 ML IVPB STA (19:31)
[2017-11-13] MEDS ORDERED: SODIUM CHLORIDE 1,000 ML IV STA (19:32)
[2017-11-13] MEDS ORDERED: HYDROmorphone HCL CARPU-JECT 1 MG/1 ML DISP.SYRIN IVPB ONE (19:59)
[2017-11-13] MEDS ORDERED: methylPREDNISolone NA SUCC 1000 MG/8 ML VIAL ONE (20:09)
[2017-11-13] MEDS ORDERED: CEFTRIAXONE 1 GM/50 ML BAG ONE (20:09)
[2017-11-13] MEDS ORDERED: methylPREDNISolone NA SUCC 125 MG/2 ML VIAL ONE (20:11)
[2017-11-13] MEDS ORDERED: morphine CARPU-JECT 2 MG/1 ML DISP.SYRIN IVPUSH ONE (20:20)
[2017-11-13] MEDS ORDERED: ONDANSETRON 4 MG/2 ML VIAL IVPUSH ONE (20:21)
[2017-11-13 20:54] LABS: URINE APPEARANCE CLEAR; URINE BILIRUBIN NEGATIVE (NEGATIVE); URINE BLOOD NEGATIVE (NEGATIVE); URINE COLOR LTYELLOW; URINE GLUCOSE (UA) NEGATIVE (NEGATIVE); URINE KETONE NEGATIVE (NEGATIVE); URINE LEUK ESTERASE NEGATIVE (NEGATIVE); URINE NITRITE NEGATIVE (NEGATIVE); URINE PROTEIN NEGATIVE (NEGATIVE); URINE UROBILINOGEN NEGATIVE mg/dL (0.2-1.0)
[2017-11-13] MEDS ORDERED: ACETAMINOPHEN INJECTION 100 ML IVPB ONE (20:57)
[2017-11-14] MEDS ORDERED: morphine CARPU-JECT 4 MG/1 ML DISP.SYRIN IVPUSH ONE (01:05)
--- NOTE | 2017-11-14 01:19 | PDOC ---
History of Present Illness - General History Source: Patient Exam Limitations: No Limitations - History of Present Illness Initial Comments: 11/14/17 01:29 Pt is a 47 yo F with PMHx of Crohn's Disease who presents to the ED for worsening abdominal pain for the past 3 days. Patient reports RLQ abdominal pain which radiates to her lower back. Patient reports abdominal pain is accompanied by nausea, vomiting, headache and diarrhea (nonbloody) . Patient was sent in to the ED by GI for worsening symptoms. Patient denies chest pain, or dizziness. Patient denies fever, chills, or constipation. Patient denies dysuria, frequency, urgency or hematuria. Patient denies sick contacts or recent travel. <Malika Jennings - Last Filed: 11/14/17 01:58> <Therese Mccormick - Last Filed: 11/14/17 22:13> - General Chief Complaint: Vomiting/Diarrhea Stated Complaint: Vomiting/Diarrhea/SENT BY PCP Time Seen by Provider: 11/13/17 18:06 Past History <Malika Jennings - Last Filed: 11/14/17 01:58> - Past Medical History COPD: No GI Disorders: Yes (Crohn's) - Surgical History Abdominal Surgery: Yes (CROHN'S/RESECTION) - Immunization History Immunization Up to Date: Yes - Suicide/Smoking/Psychosocial Hx Smoking History: Former smoker Have you smoked in the past 12 months: No Information on smoking cessation initiated: No <Therese Mccormick - Last Filed: 11/14/17 22:13> - Past Medical History Allergies/Adverse Reactions: Allergies Allergy/AdvReac Type Severity Reaction Status Date / Time metronidazole [From Flagyl] Allergy Verified 11/13/17 18:07 Home Medications: Ambulatory Orders Adalimumab [Humira] 40 mg SQ FR 10/11/16 Zolpidem Tartrate [Ambien] 10 mg PO HS PRN #30 tablet MDD 1 10/24/16 Topiramate 25 mg PO DAILY 11/13/17 Famotidine [Pepcid -] 40 mg PO DAILY #20 tablet 11/14/17 Metoclopramide HCl [Reglan -] 10 mg PO TID PRN #21 tablet 11/14/17 Ondansetron [Zofran Odt -] 4 mg SL TID PRN #21 od.tablet 11/14/17 Review of Systems - Review of Systems Able to Perform ROS?: Yes Comments:: 11/14/17 01:59 CONSTITUTIONAL: Absent: fever, no chills, no fatigue HEAD: +headache. EYES: Absent: visual changes ENT: Absent: ear pain, no sore throat CARDIOVASCULAR: Absent: chest pain, no palpitations RESPIRATORY: Absent: cough, no SOB GI: +abdominal pain, nausea, vomiting, Absent: no constipation, no diarrhea GENITOURINARY: Absent: dysuria, no frequency, no hematuria MUSCULOSKELETAL: +back pain Absent: no arthralgia, no myalgia SKIN: Absent: rash NEURO: Absent: headache <Malika Jennings - Last Filed: 11/14/17 01:58> *Physical Exam - Vital Signs Last Vital Signs Temp Pulse Resp BP Pulse Ox 97.6 F 89 19 124/81 100 11/13/17 18:07 11/13/17 18:07 11/13/17 18:07 11/13/17 18:07 11/13/17 18:07 - Physical Exam Comments: 11/14/17 02:01 GENERAL: Well-appearing, well-nourished. No apparent distress. HEENT: Normocephalic, atraumatic. PERRL, EOM intact. CARDIOVASCULAR: Normal S1, S2. Regular rate and rhythm. PULMONARY: Clear to auscultation bilaterally. ABDOMEN: +lower abdominal tenderness. Soft, non-distended. EXTREMITIES: Normal ROM in all four extremities. No gross deformities. SKIN: Warm, dry. No rash NEUROLOGICAL: No focal neurological deficits. <Malika Jennings - Last Filed: 11/14/17 01:58> - Vital Signs Last Vital Signs Temp Pulse Resp BP Pulse Ox 97.6 F 89 19 124/81 100 11/13/17 18:07 11/13/17 18:07 11/13/17 18:07 11/13/17 18:07 11/13/17 18:07 <Therese Mccormick - Last Filed: 11/14/17 22:13> ED Treatment Course - LABORATORY CBC & Chemistry Diagram: 11/13/17 18:27 11/13/17 18:27 - ADDITIONAL ORDERS Additional order review: Laboratory Results 11/13/17 11/13/17 11/13/17 21:00 20:50 18:27 Sodium 138 Potassium 4.2 Chloride 106 Carbon Dioxide 22 Anion Gap 10 BUN 9 Creatinine 0.6 Creat Clearance w eGFR > 60 Random Glucose 101 Lactic Acid 1.8 Calcium 8.4 L Total Bilirubin 0.6 D AST 24 ALT 28 Alkaline Phosphatase 92 Total Protein 8.4 H Albumin 3.9 Lipase 154 Urine Color Ltyellow Urine Appearance Clear Urine pH 6.0 Ur Specific [place] 1.015 Urine Protein Negative Urine Glucose (UA) Negative Urine Ketones Negative Urine Blood Negative Urine Nitrite Negative Urine Bilirubin Negative Urine Urobilinogen Negative Ur Leukocyte Esterase Negative 11/13/17 18:27 RBC 5.20 MCV 81.3 MCHC 33.5 RDW 14.2 MPV 9.0 Neutrophils % 51.7 Lymphocytes % 38.9 Monocytes % 7.2 Eosinophils % 1.4 D Basophils % 0.8 - Medications Given in the ED: ED Medications Discontinued Medications Generic Name Dose Route Start Last Admin Trade Name Freq PRN Reason Stop Dose Admin Hydromorphone HCl 0.5 mg 11/13/17 19:59 11/13/17 20:37 Dilaudid Injection - IVPB 11/13/17 20:00 Not Given ONCE ONE Ceftriaxone Sodium 1,000 mg/ 50 mls @ 100 mls/hr 11/13/17 19:31 11/13/17 20: 37 Dextrose IVPB 11/13/17 20:00 100 mls/hr ONCE STA Administration Sodium Chloride 1,000 mls @ 1,000 mls/hr 11/13/17 19:32 11/13/17 20:37 Normal Saline - IV 11/13/17 20:31 1,000 mls/hr ASDIR STA Administration Methylprednisolone Sodium Succinate 40 mg 11/13/17 19:30 11/13/17 20:37 Solu-Medrol - IVPB 11/13/17 19:31 40 mg ONCE STA Administration Morphine Sulfate 2 mg 11/13/17 20:20 11/13/17 20:39 Morphine Injection - IVPUSH 11/13/17 20:21 2 mg ONCE ONE Administration Ondansetron HCl 4 mg 11/13/17 20:21 11/13/17 20:40 Zofran Injection IVPUSH 11/13/17 20:22 4 mg ONCE ONE Administration <Malika Jennings - Last Filed: 11/14/17 01:58> - LABORATORY CBC & Chemistry Diagram: 11/13/17 18:27 11/13/17 18:27 - ADDITIONAL ORDERS Additional order review: Laboratory Results 11/13/17 11/13/17 11/13/17 21:00 20:50 18:27 Sodium 138 Potassium 4.2 Chloride 106 Carbon Dioxide 22 Anion Gap 10 BUN 9 Creatinine 0.6 Creat Clearance w eGFR > 60 Random Glucose 101 Lactic Acid 1.8 Calcium 8.4 L Total Bilirubin 0.6 D AST 24 ALT 28 Alkaline Phosphatase 92 Total Protein 8.4 H Albumin 3.9 Lipase 154 Urine Color Ltyellow Urine Appearance Clear Urine pH 6.0 Ur Specific [place] 1.015 Urine Protein Negative Urine Glucose (UA) Negative Urine Ketones Negative Urine Blood Negative Urine Nitrite Negative Urine Bilirubin Negative Urine Urobilinogen Negative Ur Leukocyte Esterase Negative 11/13/17 18:27 RBC 5.20 MCV 81.3 MCHC 33.5 RDW 14.2 MPV 9.0 Neutrophils % 51.7 Lymphocytes % 38.9 Monocytes % 7.2 Eosinophils % 1.4 D Basophils % 0.8 - RADIOLOGY Radiology Studies Ordered: Category Date Time Status ABDOMEN & PELVIS CT WITH CONTR [CT] Stat CT Scan 11/13/17 22:25 Completed - Medications Given in the ED: ED Medications Discontinued Medications Generic Name Dose Route Start Last Admin Trade Name Freq PRN Reason Stop Dose Admin Hydromorphone HCl 0.5 mg 11/13/17 19:59 11/13/17 20:37 Dilaudid Injection - IVPB 11/13/17 20:00 Not Given ONCE ONE Ceftriaxone Sodium 1,000 mg/ 50 mls @ 100 mls/hr 11/13/17 19:31 11/13/17 20: 37 Dextrose IVPB 11/13/17 20:00 100 mls/hr ONCE STA Administration Sodium Chloride 1,000 mls @ 1,000 mls/hr 11/13/17 19:32 11/13/17 20:37 Normal Saline - IV 11/13/17 20:31 1,000 mls/hr ASDIR STA Administration Methylprednisolone Sodium Succinate 40 mg 11/13/17 19:30 11/13/17 20:37 Solu-Medrol - IVPB 11/13/17 19:31 40 mg ONCE STA Administration Morphine Sulfate 2 mg 11/13/17 20:20 11/13/17 20:39 Morphine Injection - IVPUSH 11/13/17 20:21 2 mg ONCE ONE Administration Ondansetron HCl 4 mg 11/13/17 20:21 11/13/17 20:40 Zofran Injection IVPUSH 11/13/17 20:22 4 mg ONCE ONE Administration <Therese Mccormick - Last Filed: 11/14/17 22:13> Medical Decision Making - Medical Decision Making 11/14/17 22:12 47-year-old female with a history of Crohn's disease, sent in by her GI doctor Johanna for CAT scan to rule out small bowel obstruction. Patient did not have a fever. She reported some nausea, vomiting and persistent loose stools for 3 days. Abdominal exam, some mild tenderness of the lower quadrants but no rebound or guarding. CBC is unremarkable. CAT scan of the abdomen and pelvis with contrast shows chronic inflammation of the colon, but no small bowel obstruction or mass or abscess. Dr. Woods requested the patient receive 2 L of dextrose and lactated Ringer's, Reglan and Zofran and to be discharged home with follow-up in his office <Therese Mccormick - Last Filed: 11/14/17 22:13> *DC/Admit/Observation/Transfer - Attestations Scribe Attestion: 11/14/17 02:01 Documentation prepared by Malika Jennings, acting as medical office clerk for Therese Mccormick MD <Malika Jennings - Last Filed: 11/14/17 01:58> - Discharge Dispostion Admit: Yes <Therese Mccormick - Last Filed: 11/14/17 22:13> Diagnosis at time of Disposition: Exacerbation of Crohn's disease Qualifiers: Digestive disease complication type: without complication Qualified Code(s): K50.90 - Crohn's disease, unspecified, without complications - Discharge Dispostion Disposition: HOME - Prescriptions Prescriptions: Famotidine [Pepcid -] 40 mg PO DAILY #20 tablet Metoclopramide HCl [Reglan -] 10 mg PO TID PRN #21 tablet PRN Reason: Nausea And/Or Vomiting Ondansetron [Zofran Odt -] 4 mg SL TID PRN #21 od.tablet PRN Reason: Nausea And/Or Vomiting - Referrals Referrals: Ghazala Bassett MD [Primary Care Provider] - - Patient Instructions - Post Discharge Activity Forms/Work/School Notes: Back to Work
[2017-11-14] MEDS ORDERED: DEXTROSE 5%-LACTATED RINGERS 1,000 ML IV SCH ×2 (01:30→03:00)
[2017-11-14] MEDS ORDERED: morphine SULFATE 4 MG/ML VIAL ONE (01:48)
== END 2017-11-14 05:51 | disposition home or self-care (01) ==
LOC: JER 17:38 → UNDOADMOB 11-14 01:19 → JERBED 11-14 01:19 → JER 11-14 05:51
PROC: 3E0337Z Introduction of Electrolytic and Water Balance Substance into Peripheral Vein, Percutaneous Approach (ICD-10-PCS; principal; 2017-11-13)
PROC: 3E03329 Introduction of Other Anti-infective into Peripheral Vein, Percutaneous Approach (ICD-10-PCS; 2017-11-13)
PROC: 3E033NZ Introduction of Analgesics, Hypnotics, Sedatives into Peripheral Vein, Percutaneous Approach (ICD-10-PCS; 2017-11-13)
PROC: 3E0333Z Introduction of Anti-inflammatory into Peripheral Vein, Percutaneous Approach (ICD-10-PCS; 2017-11-13)
PROC: 3E033GC Introduction of Other Therapeutic Substance into Peripheral Vein, Percutaneous Approach (ICD-10-PCS; 2017-11-13)
DX: K50.90 Crohn's disease, unspecified, without complications (principal)
CPT/HCPCS: 36415; 74177-TC; 80053; 81003; 83605; 83690; 85025; 99283-25; J7030